=== PATIENT | female | born 1945 | race Caucasian/White ===

== ENCOUNTER → 2017-10-24 15:06 | Outpatient (CLI) | payer MEDICARE, OTHER, SELFPAY ==
[2017-10-24 16:49] LABS: Alanine Aminotransferase 27 IU/L (9-52); Aspartate Aminotransferase 29 IU/L (14-36); Blood Urea Nitrogen 23 mg/dL (7-17); Cholesterol 248 mg/dL (140-199); HDL Cholesterol 87 mg/dL (40-60); LDL Cholesterol Calculated 127 mg/dL (<100); Triglycerides 172 mg/dL (35-150)
[2017-10-24 17:18] LABS: TSH w/ Reflex to FT4 0.43 uIU/mL (0.47-4.68)
[2017-10-24 18:14] LABS: Free T4, Direct Thyroxine 1.38 ng/dL (0.78-2.19)
== END ==
PROVIDERS: PCP Internal Medicine; Visit Provider Internal Medicine
DX: M81.0 Age-related osteoporosis without current pathological fracture (principal); E78.5 Hyperlipidemia, unspecified; E03.9 Hypothyroidism, unspecified
CPT/HCPCS: 36415; 80061; 82306; 84439; 84443; 84450; 84460; 84520

== ENCOUNTER → 2017-12-30 09:07 | Outpatient (CLI) | payer MEDICARE, OTHER, SELFPAY ==
--- NOTE | 2017-12-30 | DI.RAD.S_ITS ---
PROCEDURE: XR HIP W PEL IF DONE LT 2V INDICATIONS: HIP PAIN TECHNIQUE: AP pelvis with lateral view(s) of the left hip. COMPARISON: None. FINDINGS: Bones: No fractures or dislocations. Prior right total hip arthroplasty. Also, prior long medullary rizwan placement with diagonal dynamic hip screws on the left, showing no evidence of device loosening or disruption. 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 Pelvic ring appears intact. No suspicious bony lesions. Soft tissues: The visualized bowel gas pattern is normal. No suspicious soft tissue calcifications. 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 Right hip arthroplasty intact. All orthopedic devices appear free of disruption or loosening. Dictated by: Govind Smith M.D. on 12/30/2017 at 10:42 Approved by: Govind Smith M.D. on 12/30/2017 at 10:43
== END ==
PROVIDERS: Family Provider Internal Medicine; PCP Internal Medicine; Visit Provider Physician Assistant
DX: M16.12 Unilateral primary osteoarthritis, left hip (principal); M25.552 Pain in left hip; M54.32 Sciatica, left side; Z96.641 Presence of right artificial hip joint
CPT/HCPCS: 73502

== ENCOUNTER → 2018-01-02 15:24 | Outpatient (CLI) | payer MEDICARE, OTHER, SELFPAY ==
--- NOTE | 2018-01-02 15:49 | DI.RAD.S_ITS ---
PROCEDURE: XR BONE LENGTH SCANOGRAM INDICATIONS: PAIN TECHNIQUE: A single frontal standing view of the left lower extremity acquired, with measuring ruler situated between the legs. COMPARISON: [facility], CR, XR KNEE 1 OR 2VW LT, 10/16/2015, 14:33. [facility], CR, XR KNEE 1 OR 2VW LT, 09/11/2015, 13:44. [facility], CR, KNEE SERIES LT, 08/24/2015, 11:44. [facility], CR, KNEE 3V LEFT, 08/13/2015, 16:21. FINDINGS: Left: Total leg length is 96.8 cm. femoral IM rizwan in proximal dynamic hip screws are present. IMPRESSION: Left leg length as above. Dictated by: Kayden FORTUNE Interpreted: Jennifer Zambrano MD on 01/02/2018 at 16:56 Approved by: Shawn Wright M.D. on 01/02/2018 at 17:11
== END ==
PROVIDERS: Family Provider Physician Assistant; PCP Internal Medicine; Visit Provider Internal Medicine
DX: M79.605 Pain in left leg (principal); M25.552 Pain in left hip
CPT/HCPCS: 77073

== ENCOUNTER → 2018-03-10 12:27 | Outpatient (CLI) | payer MEDICARE, OTHER, SELFPAY ==
[2018-03-10 13:48] LABS: Alanine Aminotransferase 24 IU/L (9-52); Aspartate Aminotransferase 30 IU/L (14-36); Cholesterol 174 mg/dL (140-199); HDL Cholesterol 73 mg/dL (40-60); LDL Cholesterol Calculated 78 mg/dL (<100); Triglycerides 114 mg/dL (35-150)
[2018-03-10 14:56] LABS: Vitamin D 25 Hydroxy (D3) 31.2 ng/mL (30.0-100.0)
== END ==
PROVIDERS: PCP Internal Medicine; Visit Provider Internal Medicine
DX: E55.9 Vitamin D deficiency, unspecified (principal); E78.5 Hyperlipidemia, unspecified; E03.9 Hypothyroidism, unspecified
CPT/HCPCS: 36415; 80061; 82306; 84443; 84450; 84460

== ENCOUNTER → 2018-06-18 14:36 | Outpatient (CLI) | payer MEDICARE, OTHER, SELFPAY ==
--- NOTE | 2018-06-18 | DI.MG.S_ITS ---
BILATERAL DIGITAL SCREENING MAMMOGRAM 3D/2D WITH CAD: 06/18/2018 CLINICAL: Routine screening. Family history of breast cancer. Comparison is made to exams dated: 06/17/2017 mammogram, 05/20/2016 mammogram, and 04/24/2015 mammogram - [facility]. The tissue of both breasts is heterogeneously dense. This may lower the sensitivity of mammography. Current study was also evaluated with a Computer Aided Detection (CAD) system. There are benign calcifications in both breasts. No significant masses, calcifications, or other findings are seen in either breast. There has been no significant interval change. IMPRESSION: There is no mammographic evidence of malignancy. A 1 year screening mammogram is recommended. This exam was interpreted at Station ID: [id number]. NOTE: For mammograms, a report in lay terms will be sent to the patient. Approximately 15% of breast malignancies will not be visualized mammographically. In the management of a palpable breast mass, a negative mammogram must not discourage biopsy of a clinically suspicious lesion. Electronically Signed By: Danny quarles/kay:06/18/2018 19:05:16 letter sent: Normal Exam ACR BI-RADS Category 2: Benign Finding(s) 3342F
== END ==
PROVIDERS: PCP Internal Medicine; Visit Provider Internal Medicine
DX: Z12.31 Encounter for screening mammogram for malignant neoplasm of breast (principal); Z80.3 Family history of malignant neoplasm of breast
CPT/HCPCS: 77063; 77067

== ENCOUNTER 2018-06-24 09:30 | Day surgery (SDC) | payer MEDICARE, OTHER, SELFPAY ==
[2018-06-24 10:17] VITALS: BP 147/72; PULSE 79; RESP 12; TEMP 36.4; O2SAT 98
[2018-06-24 10:19] VITALS: BMI 26.2
[2018-06-24] MEDS: SODIUM CHLORIDE 0.9% 1,000 ML 84 ML IV (10:37)
--- NOTE | 2018-06-24 10:37 | PM.HP.1 ---
History of Present Illness Date Patient Seen: 06/24/18 Time Patient Seen: 10:37 Chief complaint: [id number] Colonoscopy Narrative: Colorectal cancer screening with family history of colon cancer Patient History Medical History Depression (Acute) GE reflux (Acute) Hypercholesterolemia (Acute) Hypothyroidism (Acute) Social History household members: none Family & Social History Social History: household members none Meds Home Medications Medication Instructions Recorded Confirmed Type Maxalt-WHITE [employer]ER 06/24/18 History calcitonin (salmon) 1 spray INTRANASAL (ALT) DAILY 06/24/18 06/24/18 History cetirizine [Zyrtec] 10 mg PO DAILY 06/24/18 06/24/18 History cholecalciferol (vitamin D3) 1,000 unit PO DAILY 06/24/18 06/24/18 History [Vitamin D3] coQ10 (ubiquinol) 06/24/18 History levothyroxine 88 mcg PO DAILY 06/24/18 06/24/18 History magnesium oxide 400 mg PO BID 06/24/18 06/24/18 History omeprazole 10 - 20 mg PO DAILY 06/24/18 06/24/18 History sertraline 25 mg PO DAILY 06/24/18 06/24/18 History simvastatin 20 mg PO BEDTIME 06/24/18 06/24/18 History triamcinolone acetonide 1 applic TOPICAL BID 06/24/18 06/24/18 History triazolam 0.25 mg PO PRN PRN 06/24/18 06/24/18 History vitamin B complex 06/24/18 History Allergies Allergy/AdvReac Type Severity Reaction Status Date / Time meperidine [From DEMEROL] Allergy Unknown Hallucinati Verified 06/24/18 09:59 ons Exam Vital Signs (past 8 hours): - 06/24/18 10:17 Temperature 97.6 F Pulse Rate 79 Respiratory Rate 12 Blood Pressure 147/72 H Pulse Oximetry 98 Oxygen Delivery Method Room Air Narrative Exam Narrative: Oropharynx free of lesions Chest clear to auscultation percussion Cardiac exam reveals no S3 or murmur Assessment & Plan Assessment & Plan narrative: History of colon cancer in a first-degree relative (mother at age 70). Need for colorectal cancer screening in a high risk individual. Risks benefits and alternatives have been explained. Colonoscopy to be performed today.
--- NOTE | 2018-06-24 10:39 | PM.OP.ENDO ---
Operative Date/Time/Diagnoses Date of procedure: 06/24/18 Time of procedure: 10:39 Pre-op diagnosis: See indication and findings Procedure & Clinicians Study performed: Colonoscopy Same procedure as scheduled: Yes Indications: Family history of colon cancer in a first-degree relative Surgeon: Robin Diaz Procedure Notes Procedure in detail: After informed consent was obtained the patient was placed in left lateral decubitus position. The video colonoscope was introduced the rectum slowly advanced to the cecum. On slow withdrawal mucosa was carefully examined. The scope was removed. The patient tolerated the procedure well. The colon was quite tortuous. Preparation was good to fair given some solid stool in the distal colon Blood loss none Complications none Sedation Total sedation time 24 min Findings 1. Normal colonoscopy to cecum Patient should have follow-up colonoscopy in 5 years.
[2018-06-24] MEDS: MIDAZOLAM 5 MG/5 ML VIAL IV (11:27)
[2018-06-24] MEDS: fentaNYL 250 MCG/5 ML INJ IV (11:27)
[2018-06-24 11:49] VITALS: BP 108/66; PULSE 77; RESP 15; TEMP 36.2; O2SAT 95
[2018-06-24 11:54] VITALS: BP 112/67; PULSE 76; RESP 9; O2SAT 97
[2018-06-24 12:04] VITALS: BP 105/58; PULSE 76; RESP 15; O2SAT 95
[2018-06-24 12:20] VITALS: BP 116/71; PULSE 75; RESP 16; TEMP 36.2; O2SAT 100
[2018-06-24 12:35] VITALS: BP 114/68; PULSE 74; RESP 16; TEMP 36.2; O2SAT 100
== END 2018-06-24 12:40 | disposition home or self-care (01) ==
PROVIDERS: PCP Internal Medicine; Visit Provider Internal Medicine Gastroenterology
PROC: 0DJD8ZZ Inspection of Lower Intestinal Tract, Via Natural or Artificial Opening Endoscopic (ICD-10-PCS; CPT 45378; principal; 2018-06-24 10:30)
DX: Z12.11 Encounter for screening for malignant neoplasm of colon (principal); Z80.0 Family history of malignant neoplasm of digestive organs; F32.9 Major depressive disorder, single episode, unspecified; K21.9 Gastro-esophageal reflux disease without esophagitis; E78.00 Pure hypercholesterolemia, unspecified; E03.9 Hypothyroidism, unspecified
CPT/HCPCS: G0105; J2250; J3010

== ENCOUNTER → 2018-10-28 14:28 | Outpatient (CLI) | payer MEDICARE, OTHER, SELFPAY ==
[2018-10-28 15:15] LABS: BUN Creatinine Ratio 24.4 (6-22); Blood Urea Nitrogen 22 mg/dL (7-17); Calcium 9.8 mg/dL (8.4-10.2); Carbon Dioxide 27 mmol/L (22-32); Chloride 106 mmol/L (98-107); Cholesterol 210 mg/dL (140-199); Estimated Glomerular Filt Rate > 60.0 mL/min (>60); Glucose 89 mg/dL (80-110); HDL Cholesterol 70 mg/dL (40-60); HEMOLYSIS < 15 (0-50); LDL Cholesterol Calculated 108 mg/dL (<100); Potassium 4.4 mmol/L (3.4-5.1); Sodium 143 mmol/L (137-145); Triglycerides 161 mg/dL (35-150)
[2018-10-28 15:57] LABS: Vitamin D 25 Hydroxy (D3) 42.3 ng/mL (30.0-100.0)
== END ==
PROVIDERS: PCP Internal Medicine; Visit Provider Internal Medicine
DX: M81.0 Age-related osteoporosis without current pathological fracture (principal); E78.5 Hyperlipidemia, unspecified
CPT/HCPCS: 36415; 80048; 80061; 82306

== ENCOUNTER 2019-05-02 16:21 | Emergency (ER) | payer MEDICARE, OTHER, SELFPAY ==
--- NOTE | 2019-05-02 | DI.RAD.S_ITS ---
PROCEDURE: XR TIBIA FUBULA RT 2V INDICATIONS: FALL, LOWER RIGHT LEG PAIN TECHNIQUE: 2 views of the tibia and fibula were acquired. COMPARISON: [facility], CR, XR KNEE RT 3V, 05/02/2019, 17:58. FINDINGS: Bones: No fractures or dislocations. No suspicious bony lesions. Soft tissues: No suspicious soft tissue calcifications or masses. IMPRESSION: No fracture or dislocation. Dictated by: Skylar Woo M.D. on 05/02/2019 at 18:31 Approved by: Skylar Woo M.D. on 05/02/2019 at 18:32
[2019-05-02 16:35] VITALS: BP 178/82; PULSE 90; RESP 18; TEMP 36.6; O2SAT 100; BMI 26.1
--- NOTE | 2019-05-02 17:03 | ED_ITS ---
HPI - Extremity Injury (Lower) <Kyara AlmendarezHEENA agee - Last Filed: 05/02/19 21:07> General Chief Complaint: Extremity Injury, Lower Stated Complaint: Slipped ,fall, R leg pain,bruised Time Seen by Provider: 05/02/19 16:44 Source: patient Mode of arrival: Family Vehicle Limitations: no limitations History of Present Illness HPI Narrative: 73-year-old female with history of osteoporosis, presents to the emergency department complaining of right lower leg pain after a fall. She states 4 days ago she slipped on ice on her deck and fell on her left hip while twisting her right leg. She states she has been limping around for the past few days but has had continued right lower leg pain. She denies any knee pain or ankle pain. She has had both hips replaced but denies any knee surgeries. Patient states the pain is on the lateral aspect right leg below the knee. It is worse with palpation and slightly better with rest. Patient denies taking any blood thinners, denies hitting her head. She denies pain in any other area. 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 06/24/18 Zyrtec 10 mg PO DAILY 06/24/18 06/24/18 calcitonin (salmon) 1 spray INTRANASAL (ALT) DAILY 06/24/18 06/24/18 cholecalciferol (vitamin D3) 1,000 unit PO DAILY 06/24/18 06/24/18 [Vitamin D3] coQ10 (ubiquinol) 06/24/18 levothyroxine 88 mcg PO DAILY 06/24/18 06/24/18 magnesium oxide 400 mg PO BID 06/24/18 06/24/18 omeprazole 10 - 20 mg PO DAILY 06/24/18 06/24/18 sertraline 25 mg PO DAILY 06/24/18 06/24/18 simvastatin 20 mg PO BEDTIME 06/24/18 06/24/18 triamcinolone acetonide 1 applic TOPICAL BID 06/24/18 06/24/18 triazolam 0.25 mg PO PRN PRN 06/24/18 06/24/18 vitamin B complex 06/24/18 Allergies Allergy/AdvReac Type Severity Reaction Status Date / Time meperidine [From DEMEROL] Allergy Unknown Hallucinati Verified 06/24/18 09:59 ons Review of Systems <HEENA Valadez - Last Filed: 05/02/19 21:07> Review of Systems Narrative: REVIEW OF SYSTEMS: GENERAL: Denies fever or chills. HENT: No head trauma. EYES: No double vision or vision loss. CARDIOVASCULAR: No chest pain or syncope. RESPIRATORY: No shortness of breath or cough. GASTROINTESTINAL: No nausea, vomiting, diarrhea, or constipation. GENITOURINARY: No flank pain or dysuria. MUSCULOSKELETAL: Complains of right lower leg pain, see HPI. INTEGUMENTARY: No rash, lesions, or pruritus. NEURO: No numbness, tingling. PSYCH: No behavior or mood changes. Patient History <HEENA Valadez - Last Filed: 05/02/19 21:07> Medical History Depression (Acute) GE reflux (Acute) Hypercholesterolemia (Acute) Hypothyroidism (Acute) Social History household members: none Smoking Status: Never smoker Smoking Status: Never smoker alcohol intake frequency: 0-2 drinks per day Substance Use Type: does not use Exam <HEENA Valadez - Last Filed: 05/02/19 21:07> Initial Vital Signs Initial Vital Signs: Vital Signs Temperature 97.8 F 05/02/19 16:35 Pulse Rate 90 05/02/19 16:35 Respiratory Rate 18 05/02/19 16:35 Blood Pressure 178/82 H 05/02/19 16:35 Pulse Oximetry 100 05/02/19 16:35 PHYSICAL EXAMINATION: GENERAL: Well groomed, alert, and cooperative. Answers questions promptly and appropriately. Vital signs noted. HENT: Normocephalic, atraumatic. EYES: Symmetrical, sclera white, no periorbital swelling. CARDIOVASCULAR: S1 and S2 sounds normal. Regular rate and rhythm, no murmurs, clicks, or bruits. No pedal edema. RESPIRATORY: Normal respiratory rate, trachea midline, airway patent. No stridor, nasal flaring or accessory muscle use. Lungs are clear in all ferrara. MUSCULOSKELETAL: Significant tenderness to right lower calf on examination, slight tenderness to right lateral aspect of tibia with palpation. Minimal bruising noted to this area. No swelling, erythema, or lesions. Patient walks with limp due to pain. Equal tone and mass bilaterally. No spinal tenderness or deformities. EXTREMITIES: CMS intact. No pedal edema. SKIN: Warm, dry, soft, appropriate color for ethnicity. No lesions, rashes, or wounds. NEURO: Alert and Oriented X 3. No sensory deficits. PSYCH: Appropriate affect and mood. <Gabby Castanon DO - Last Filed: 05/05/19 08:07> Initial Vital Signs Initial Vital Signs: Vital Signs Temperature 97.8 F 05/02/19 16:35 Pulse Rate 90 05/02/19 16:35 Respiratory Rate 18 05/02/19 16:35 Blood Pressure 178/82 H 05/02/19 16:35 Pulse Oximetry 100 05/02/19 16:35 Course <HEENA Valadez - Last Filed: 05/02/19 21:07> Course Course Narrative: Patient was able to ambulate around the department. Orders Ordered: ED Orders 05/02/19 17:02 US periph venous low extrem rt Stat 05/02/19 17:36 XR knee RT 3V Stat Consultations Consultation #1: Patient staffed with Dr. Castanon Vital Signs Vital signs: Vital Signs - 8 hr 05/02/19 16:35 05/02/19 18:54 Temperature 97.8 F Pulse Rate 90 81 Respiratory Rate 18 16 Blood Pressure 178/82 H Blood Pressure [Left Arm] 176/77 H Pulse Oximetry 100 100 <Gabby Castanon DO - Last Filed: 05/05/19 08:07> Orders Ordered: ED Orders 05/02/19 17:02 US periph venous low extrem rt Stat 05/02/19 17:36 XR knee RT 3V Stat Vital Signs Vital signs: Vital Signs - 8 hr 05/02/19 16:35 05/02/19 18:54 Temperature 97.8 F Pulse Rate 90 81 Respiratory Rate 18 16 Blood Pressure 178/82 H Blood Pressure [Left Arm] 176/77 H Pulse Oximetry 100 100 MDM - Extremity Injury (Lower) <HEENA Valadez - Last Filed: 05/02/19 21:07> Medical Records Attestation: I reviewed the patient's medical records. Lab Data Attestation: I reviewed the patient's lab results. Imaging Data US - DVT: Radiologist's Impression: [address] [address] Ultrasound Report Signed Patient: Dulce Arreola FMR#: [id number] : 7Acct:[id number] Age/Sex: 73 / FDate of Service: 05/02/19 Loc: ED Accession Number: [id number] Procedure: US periph venous low extrem rt Ordering Provider: Kyara Painter PROCEDURE: US PERIPH VENOUS LOW EXTREM RT INDICATIONS: RL CALF PAIN, clinical concern for DVT TECHNIQUE: Real-time imaging, as well as color and pulse Doppler interrogation, were performed of the lower extremity deep veins from the inguinal ligament to the popliteal fossa. COMPARISON: None. FINDINGS: The common femoral, femoral and popliteal veins are normally compressible, and free of intraluminal thrombus. Color and pulse Doppler demonstrate normal phasic intraluminal flow. There is normal augmentation response to distal compression maneuver. IMPRESSION: Negative for deep venous thrombosis. Dictated by: Chet Coker M.D. on 05/02/2019 at 16:38 Approved by: Chet Coker M.D. on 05/02/2019 at 16:38 Knee Xray: Radiologist's Impression: [address] [address] XRay Report Signed Patient: Dulce Arreola FMR#: [id number] : 7Acct:[id number] Age/Sex: 73 / FDate of Service: 05/02/19 Loc: ED Accession Number: [id number] Procedure: XR knee RT 3V Ordering Provider: Kyara Painter PROCEDURE: XR KNEE RT 3V INDICATIONS: R lateral knee pain post fall TECHNIQUE: 3 views of the knee were acquired. COMPARISON: [facility], CR, XR TIBIA FIBULA RT 2V, 05/02/2019, 18:03. FINDINGS: Bones: No fractures or dislocations. No suspicious bony lesions. Mild degenerative changes is noted Soft tissues: No joint effusion. No suspicious soft tissue calcifications. IMPRESSION: No fracture or dislocation. Dictated by: Skylar Woo M.D. on 05/02/2019 at 18:32 Approved by: Skylar Woo M.D. on 05/02/2019 at 18:34 [facility] Narrative Medical decision making narrative: 73-year-old female presents to the emergency department complaining of right lower leg pain after fall. Differential includes DVT which is less likely due to negative ultrasound, this was originally ordered due to significant calf pain on examination. Less likely fracture due to negative knee and tib-fib x-rays (this was originally ordered due to significant history of osteoporosis and history of multiple fractures in the past). Less likely compartment syndrome due to lack of significant swelling or disproportionate pain on examination. Patient was able to ambulate on this leg for the past 4 days, she was able to ambulate without significant limping to and from the emergency department. She was encouraged to use ice, elevation, compression, and gentle stretches to the area to help with pain. Patient was encouraged to follow up with her primary care provider in 1-2 weeks for re- evaluation of symptoms continue. ED precautions given. Discharge Plan Departure Patient Disposition: Home Clinical Impression: Acute pain of right lower extremity Discharge Date/Time: 05/02/19 18:55 Instructions: DI for Leg Pain Activity Restrictions/Additional Instructions: Thank you for entrusting me with your care today. As discussed, your x-rays are negative for any fracture and your ultrasound is negative for a blood clot. I suggest he follow up with her primary care provider in 1-2 weeks for re- evaluation if your symptoms continue. You may continue take Tylenol for pain. I suggest gentle stretches and a small amount of activity. Return emergency department for new or worsening symptoms such as worsening pain, high fevers, or other concerns. Prescriptions: No Action vitamin B complex Tablet Extended Release RF: 0 triazolam 0.25 mg Tablet 0.25 mg PO PRN PRN (Reason: Migraine Headache) RF: 0 levothyroxine 88 mcg Tablet 88 mcg PO DAILY RF: 0 omeprazole 10 mg Capsule,Delayed Release(Dr/Ec) 10 - 20 mg PO DAILY RF: 0 triamcinolone acetonide 0.025 % Cream 1 applic TOPICAL BID RF: 0 calcitonin (salmon) 200 unit/actuation [place],Non-Aerosol 1 spray INTRANASAL (ALT) DAILY RF: 0 simvastatin 20 mg Tablet 20 mg PO BEDTIME RF: 0 sertraline 25 mg Tablet 25 mg PO DAILY RF: 0 cholecalciferol (vitamin D3) [Vitamin D3] 1,000 unit Capsule 1,000 unit PO DAILY RF: 0 Zyrtec 10 mg Capsule 10 mg PO DAILY RF: 0 magnesium oxide 400 mg magnesium Tablet 400 mg PO BID RF: 0 Maxalt-SOCIAL MEDIA EXECUTIVE RF: 0 coQ10 (ubiquinol) RF: 0 Referrals: Lillie Mchugh MD [Primary Care Provider] -
--- NOTE | 2019-05-02 17:36 | DI.RAD.S_ITS ---
PROCEDURE: XR KNEE RT 3V INDICATIONS: R lateral knee pain post fall TECHNIQUE: 3 views of the knee were acquired. COMPARISON: [facility], CR, XR TIBIA FIBULA RT 2V, 05/02/2019, 18:03. FINDINGS: Bones: No fractures or dislocations. No suspicious bony lesions. Mild degenerative changes is noted Soft tissues: No joint effusion. No suspicious soft tissue calcifications. IMPRESSION: No fracture or dislocation. Dictated by: Skylar Woo M.D. on 05/02/2019 at 18:32 Approved by: Skylar Woo M.D. on 05/02/2019 at 18:34
[2019-05-02 18:54] VITALS: BP 176/77; PULSE 81; RESP 16; O2SAT 100
== END 2019-05-02 18:55 | disposition home or self-care (01) ==
PROVIDERS: Emergency Provider Nurse Practitioner; PCP Internal Medicine
DX: M79.661 Pain in right lower leg (principal); W00.0XXA Fall on same level due to ice and snow, initial encounter
CPT/HCPCS: 73562; 73590; 93971; 99283

== ENCOUNTER → 2019-05-12 14:05 | Outpatient (CLI) | payer MEDICARE, OTHER, SELFPAY ==
[2019-05-12 15:55] LABS: Alanine Aminotransferase 19 IU/L (<35); Aspartate Aminotransferase 36 IU/L (14-36); Cholesterol 229 mg/dL (140-199); HDL Cholesterol 60 mg/dL (40-60); LDL Cholesterol Calculated 124 mg/dL (<100); Triglycerides 227 mg/dL (35-150)
[2019-05-12 16:08] LABS: Vitamin D 25 Hydroxy (D3) 36.5 ng/mL (30.0-100.0)
== END ==
PROVIDERS: PCP Internal Medicine; Visit Provider Internal Medicine
DX: E78.5 Hyperlipidemia, unspecified (principal); M81.0 Age-related osteoporosis without current pathological fracture
CPT/HCPCS: 36415; 80061; 82306; 84450; 84460

== ENCOUNTER → 2019-06-22 15:08 | Outpatient (CLI) | payer MEDICARE, OTHER, SELFPAY ==
--- NOTE | 2019-06-22 15:13 | DI.MG.S_ITS ---
BILATERAL DIGITAL SCREENING MAMMOGRAM 3D/2D WITH CAD: 06/22/2019 CLINICAL: Routine screening. Family history of breast cancer. Comparison is made to exams dated: 06/18/2018 mammogram, 06/17/2017 mammogram, and 05/20/2016 mammogram - [facility]. The tissue of both breasts is heterogeneously dense. This may lower the sensitivity of mammography. Current study was also evaluated with a Computer Aided Detection (CAD) system. There are benign calcifications in both breasts. No significant masses, calcifications, or other findings are seen in either breast. There has been no significant interval change. IMPRESSION: There is no mammographic evidence of malignancy. A 1 year screening mammogram is recommended. This exam was interpreted at Station ID: [id number]. NOTE: For mammograms, a report in lay terms will be sent to the patient. Approximately 15% of breast malignancies will not be visualized mammographically. In the management of a palpable breast mass, a negative mammogram must not discourage biopsy of a clinically suspicious lesion. Electronically Signed By: Danny quarles/kay:06/23/2019 09:03:40 letter sent: Normal Exam ACR BI-RADS Category 2: Benign Finding(s) 3342F
== END ==
PROVIDERS: PCP Internal Medicine; Referring Provider Internal Medicine; Visit Provider Internal Medicine
DX: Z12.31 Encounter for screening mammogram for malignant neoplasm of breast (principal); Z80.3 Family history of malignant neoplasm of breast
CPT/HCPCS: 77063; 77067

== ENCOUNTER → 2019-11-24 15:21 | Outpatient (CLI) | payer MEDICARE, OTHER, SELFPAY ==
[2019-11-24 15:53] LABS: Hematocrit 37.3 % (36-46); Hemoglobin 12.3 g/dL (12.0-16.0); Mean Corpuscular HGB Conc 32.9 % (30-36); Mean Corpuscular Hemoglobin 30.7 PG (26-34); Mean Corpuscular Volume 93.2 fL (80-100); Platelet Count 238 X10^3/uL (150-400); Red Cell Distribution Width 13.2 % (11.6-14.8); White Blood Cell Count 6.8 X10^3/uL (4.5-11.0)
[2019-11-24 16:23] LABS: BUN Creatinine Ratio 26.6 (6-22); Blood Urea Nitrogen 25 mg/dL (7-17); Carbon Dioxide 26 mmol/L (22-32); Chloride 104 mmol/L (98-107); Estimated Glomerular Filt Rate 58.4 mL/min (>60); Glucose 93 mg/dL (80-110); HEMOLYSIS < 15 (0-50); Potassium 4.3 mmol/L (3.4-5.1); Sodium 139 mmol/L (137-145)
[2019-11-24 17:12] LABS: Vitamin B12 417 pg/mL (239-931)
[2019-11-24 17:17] LABS: TSH w/ Reflex to FT4 0.46 uIU/mL (0.47-4.68)
[2019-11-24 19:29] LABS: Free T4, Direct Thyroxine 1.39 ng/dL (0.78-2.19)
== END ==
PROVIDERS: PCP Internal Medicine; Referring Provider Internal Medicine; Visit Provider Internal Medicine
DX: R53.82 Chronic fatigue, unspecified (principal); E03.9 Hypothyroidism, unspecified
CPT/HCPCS: 36415; 80048; 82607; 84439; 84443; 85027

== ENCOUNTER → 2020-02-29 14:31 | Outpatient (CLI) | payer MEDICARE, OTHER, SELFPAY ==
[2020-02-29 18:10] LABS: Alanine Aminotransferase 19 IU/L (<35); Aspartate Aminotransferase 36 IU/L (14-36); Cholesterol 230 mg/dL (140-199); HDL Cholesterol 85 mg/dL (40-60); LDL Cholesterol Calculated 119 mg/dL (<100); Triglycerides 128 mg/dL (35-150)
== END ==
PROVIDERS: PCP Internal Medicine; Referring Provider Internal Medicine; Visit Provider Internal Medicine
DX: E78.5 Hyperlipidemia, unspecified (principal)
CPT/HCPCS: 36415; 80061; 84450; 84460

== ENCOUNTER → 2020-06-28 15:23 | Outpatient (CLI) | payer MEDICARE, OTHER, SELFPAY ==
--- NOTE | 2020-06-28 15:25 | DI.MG.S_ITS ---
BILATERAL DIGITAL SCREENING MAMMOGRAM 3D/2D WITH CAD: 06/28/2020 CLINICAL: Routine screening. Family history of breast cancer. Comparison is made to exams dated: 06/22/2019 mammogram, 06/18/2018 mammogram, and 06/17/2017 mammogram - [facility]. The tissue of both breasts is heterogeneously dense. This may lower the sensitivity of mammography. Current study was also evaluated with a Computer Aided Detection (CAD) system. No significant masses, calcifications, or other findings are seen in either breast. There has been no significant interval change. IMPRESSION: NEGATIVE There is no mammographic evidence of malignancy. A 1 year screening mammogram is recommended. This exam was interpreted at Station ID: [id number]. NOTE: For mammograms, a report in lay terms will be sent to the patient. Approximately 15% of breast malignancies will not be visualized mammographically. In the management of a palpable breast mass, a negative mammogram must not discourage biopsy of a clinically suspicious lesion. Electronically Signed By: Melida colin/kay:06/28/2020 16:53:32 letter sent: Normal Exam ACR BI-RADS Category 1: Negative 3341F
== END ==
PROVIDERS: PCP Internal Medicine; Referring Provider Internal Medicine; Visit Provider Internal Medicine
DX: Z12.31 Encounter for screening mammogram for malignant neoplasm of breast (principal); Z80.3 Family history of malignant neoplasm of breast
CPT/HCPCS: 77063; 77067

== ENCOUNTER 2020-09-15 23:46 | Emergency (ER) | payer MEDICARE, OTHER, SELFPAY ==
[2020-09-15 23:59] VITALS: BP 194/84; PULSE 87; RESP 16; TEMP 36.6; O2SAT 98; BMI 28.3
--- NOTE | 2020-09-16 00:07 | ED_ITS ---
HPI - General Adult General Chief complaint: Wound/Laceration Stated complaint: Her dog bit her face Time Seen by Provider: 09/15/20 23:52 Source: patient Mode of arrival: Ambulatory Limitations: no limitations History of Present Illness HPI narrative: Patient is a 74-year-old female who is here for evaluation of a dog bite to her face. She states that she was bit by her dog that is up-to-date on immunizations. She is not exactly sure when her last tetanus shot was. She states that her dog is blind and she startled her dog can cause the dog to bite her on her face. She has 3 cuts to the left cheek. Related Data Home Medications Medication Instructions Recorded Confirmed Maxalt-ADAPTIVE PHYSICAL EDUCATION SPECIALIST 06/24/18 Zyrtec 10 mg PO DAILY 06/24/18 06/24/18 calcitonin (salmon) 1 spray INTRANASAL (ALT) DAILY 06/24/18 06/24/18 cholecalciferol (vitamin D3) 1,000 unit PO DAILY 06/24/18 06/24/18 [Vitamin D3] coQ10 (ubiquinol) 06/24/18 levothyroxine 88 mcg PO DAILY 06/24/18 06/24/18 magnesium oxide 400 mg PO BID 06/24/18 06/24/18 omeprazole 10 - 20 mg PO DAILY 06/24/18 06/24/18 sertraline 25 mg PO DAILY 06/24/18 06/24/18 simvastatin 20 mg PO BEDTIME 06/24/18 06/24/18 triamcinolone acetonide 1 applic TOPICAL BID 06/24/18 06/24/18 triazolam 0.25 mg PO PRN PRN 06/24/18 06/24/18 vitamin B complex 06/24/18 Previous Rx's Medication Instructions Recorded amoxicillin-pot clavulanate 1 tab PO Q12H 7 Days #14 tab 09/16/20 [Augmentin] Allergies Allergy/AdvReac Type Severity Reaction Status Date / Time meperidine [From DEMEROL] Allergy Unknown Hallucinati Verified 09/16/20 00:15 ons Review of Systems Constitutional Constitutional: Reports system reviewed and no additional complaints, except as documented Eyes Eyes: Reports system reviewed and no additional complaints, except as documented ENT Ears, Nose, Mouth, and Throat: Reports system reviewed and no additional complaints, except as documented Integumentary/Breasts Comments: Cuts to left side of face Hematologic/Lymphatic On Anticoagulants: No Patient History Medical History Depression GE reflux Hypercholesterolemia Hypothyroidism Social History household members: none Smoking Status: Never smoker Smoking Status: Never smoker alcohol intake frequency: 0-2 drinks per day Substance Use Type: does not use Exam Initial Vital Signs Initial Vital Signs: Vital Signs Temperature 98 F 09/15/20 23:59 Pulse Rate 87 09/15/20 23:59 Respiratory Rate 16 09/15/20 23:59 Blood Pressure 194/84 H 09/15/20 23:59 Pulse Oximetry 98 09/15/20 23:59 Const General: cooperative and comfortable Limitations: mental status not altered HENMT Head: normal to inspection and normocephalic Nose: external nose normal Face and sinus: laceration Mouth: oral mucosae normal Teeth and gingiva: dentition normal Eyes Visual Ferrara: normal visual ferrara by confrontation Skin Other: Patient with 3 could still left side of her cheek. One cut is approximately 2 mm long and is not active bleeding. Second cut is approximately 7 mm long. No active bleeding. Somewhat over regular. Third cut it is approximately 3 cm long. No active bleeding. Neuro General: patient alert and patient awake Extrem General: normal to inspection and capillary refill normal Psych Appearance: grossly normal Procedures Laceration Repair Laceration 1: Site: face Side (If applicable): left Size (cm): 3 Description: linear Depth: simple, single layer Local Anesthetic: lidocaine 1% and with bicarb Amount of anesthesia used (mL): 3 Pre-repair: wound explored and irrigated extensively Skin layer closed with: other (Chromic) Size (cm): 5-0 Number of sutures: 4 Technique: simple, interrupted Laceration 2: Site: face Side (If applicable): left Size (cm): 1 Description: irregular Depth: simple, single layer Local Anesthetic: lidocaine 1% and with bicarb Amount of anesthesia used (mL): 2 Pre-repair: wound explored and irrigated extensively Skin layer closed with: other (Chromic) Size (cm): 5-0 Number of sutures: 1 Technique: simple, interrupted Course Orders Ordered: Discontinued Medications Amoxicillin/Clavulanate Potassium (Amoxicillin/Clav 875/125 Mg) 1 tab PO NOW ONE Stop: 09/16/20 00:11 Last Admin: 09/16/20 00:14 Dose: 1 tab Documented by: ZURDO Bacitracin (Bacitracin Oint 0.9 Gm Pckt) 1 applic TOP NOW ONE Stop: 09/16/20 00:41 Last Admin: 09/16/20 00:48 Dose: 1 applic Documented by: ZURDO Diphtheria/Tetanus/Acell Pertussis (Tet,Diph,Pertuss(Acell),Vac/Pf 0.5 Ml Syringe) 0.5 ml IM .ONCE ONE Stop: 09/16/20 00:03 Last Admin: 09/16/20 00:14 Dose: 0.5 ml Documented by: ZURDO Lidocaine/Sodium Bicarbonate (Lido 1%/Sod Bicarb 8.4% (10ml) 10 Ml Syringe) 10 ml INJ NOW ONE Stop: 09/16/20 00:03 Last Admin: 09/16/20 00:14 Dose: 10 ml Documented by: ZURDO Vital Signs Vital signs: Vital Signs - 8 hr 09/15/20 23:59 09/16/20 00:50 Temperature 98 F Pulse Rate 87 77 Respiratory Rate 16 17 Blood Pressure 194/84 H 176/82 H Pulse Oximetry 98 97 Medical Decision Making MDM Narrative Medical decision making narrative: The 3 cuts on the side of her face for close described above. The smallest cut needed no intervention here in the ER. Her tetanus shot was updated. The wounds were closed loosely. Given the location will start patient on antibiotics. She was given her 1st dose here in the ER will send home with prescription. She was given care instructions and return precautions. She expressed understanding and agreement. Discharge Plan Departure Patient Disposition: Home Clinical Impression: Dog bite, Facial laceration Instructions: How to Care for a Domestic Animal Bite, DI for Laceration Repair Activity Restrictions/Additional Instructions: Your tetanus was updated. You were also given your 1st dose of antibiotics. A prescription for the remainder was sent to [facility]. The stitches should come out on their own in 7-10 days. Until then you can shower like normal. Contact your primary provider for follow-up. Prescriptions: New amoxicillin-pot clavulanate [Augmentin] 875-125 mg tablet 1 tab PO Q12H 7 Days Qty: 14 RF: 0 No Action vitamin B complex Tablet Extended Release RF: 0 triazolam 0.25 mg Tablet 0.25 mg PO PRN PRN (Reason: Migraine Headache) RF: 0 levothyroxine 88 mcg Tablet 88 mcg PO DAILY RF: 0 omeprazole 10 mg Capsule,Delayed Release(Dr/Ec) 10 - 20 mg PO DAILY RF: 0 triamcinolone acetonide 0.025 % Cream 1 applic TOPICAL BID RF: 0 calcitonin (salmon) 200 unit/actuation [place],Non-Aerosol 1 spray INTRANASAL (ALT) DAILY RF: 0 simvastatin 20 mg Tablet 20 mg PO BEDTIME RF: 0 sertraline 25 mg Tablet 25 mg PO DAILY RF: 0 cholecalciferol (vitamin D3) [Vitamin D3] 1,000 unit Capsule 1,000 unit PO DAILY RF: 0 Zyrtec 10 mg Capsule 10 mg PO DAILY RF: 0 magnesium oxide 400 mg magnesium Tablet 400 mg PO BID RF: 0 Maxalt-ADAPTIVE PHYSICAL EDUCATION SPECIALIST RF: 0 coQ10 (ubiquinol) RF: 0 Referrals: Lillie Mchugh MD [Primary Care Provider] -
[2020-09-16] MEDS: LIDO 1%/SOD BICARB 8.4% (10ML) 10 ML SYRINGE INJ (00:14)
[2020-09-16] MEDS: AMOXICILLIN/CLAV 875/125 MG 1 TAB PO (00:14)
[2020-09-16] MEDS: TET,DIPH,PERTUSS(ACELL),VAC/PF 0.5 ML SYRINGE IM (00:14)
--- NOTE | 2020-09-16 00:15 | PC.NURSE ---
Pt has 3 wounds to left chin. one laceration apr 3cm, and two puncture wounds. one puncture wound slightly larger than the second.
[2020-09-16] MEDS: BACITRACIN OINT 0.9 GM PCKT 1 APPLIC TOP (00:48)
[2020-09-16 00:50] VITALS: BP 176/82; PULSE 77; RESP 17; O2SAT 97
== END 2020-09-16 01:16 | disposition home or self-care (01) ==
PROVIDERS: Emergency Provider Emergency Medicine; PCP Internal Medicine
DX: S01.452A Open bite of left cheek and temporomandibular area, initial encounter (principal); W54.0XXA Bitten by dog, initial encounter; Z23 Encounter for immunization
CPT/HCPCS: 12013; 90471; 99283; 99284; 90715

== ENCOUNTER → 2021-03-02 15:45 | Outpatient (CLI) | payer MEDICARE, OTHER, SELFPAY ==
--- NOTE | 2021-03-02 15:52 | DI.RAD.S_ITS ---
PROCEDURE: XR WRIST LT MIN 3V INDICATIONS: PAIN TECHNIQUE: 3 views of the wrist were acquired. COMPARISON: [facility], , XR HAND LT MIN 3V, 03/02/2021, 15:48. FINDINGS: Bones: Mildly displaced 4th and 5th metacarpal fractures are present. Scaphoid view: Not obtained. Soft tissues: No suspicious soft tissue calcifications. IMPRESSION: 4th and 5th metacarpal fractures as above. Dictated by: Palma Urena M.D. on 03/02/2021 at 17:30 Approved by: Palma Urena M.D. on 03/02/2021 at 17:30
--- NOTE | 2021-03-02 15:53 | DI.RAD.S_ITS ---
PROCEDURE: XR HAND LT MIN 3V INDICATIONS: PAIN TECHNIQUE: 3 views of the hand(s) acquired. COMPARISON: None. FINDINGS: Bones: Oblique fractures of the 4th and 5th metacarpals. 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 Soft tissues: No suspicious soft tissue calcifications. IMPRESSION: 4th and 5th metacarpal fractures. Dictated by: Lemuel Buchanan M.D. on 03/02/2021 at 16:49 Approved by: Lemuel Buchanan M.D. on 03/02/2021 at 16:50
== END ==
PROVIDERS: PCP Internal Medicine; Referring Provider Internal Medicine; Visit Provider Internal Medicine
DX: S62.305A Unspecified fracture of fourth metacarpal bone, left hand, initial encounter for closed fracture (principal); S62.307A Unspecified fracture of fifth metacarpal bone, left hand, initial encounter for closed fracture; M18.12 Unilateral primary osteoarthritis of first carpometacarpal joint, left hand; M19.032 Primary osteoarthritis, left wrist; W19.XXXA Unspecified fall, initial encounter
CPT/HCPCS: 73110; 73130

== ENCOUNTER → 2021-08-08 14:20 | Outpatient (CLI) | payer MEDICARE, OTHER, SELFPAY ==
--- NOTE | 2021-08-08 14:21 | DI.MG.S_ITS ---
BILATERAL DIGITAL SCREENING MAMMOGRAM 3D/2D WITH CAD: 08/08/2021 CLINICAL: Routine screening. Family history of breast cancer. Comparison is made to exams dated: 06/28/2020 mammogram, 06/22/2019 mammogram, and 06/18/2018 mammogram - [facility]. The tissue of both breasts is heterogeneously dense. This may lower the sensitivity of mammography. Current study was also evaluated with a Computer Aided Detection (CAD) system. No significant masses, calcifications, or other findings are seen in either breast. There has been no significant interval change. IMPRESSION: NEGATIVE There is no mammographic evidence of malignancy. A 1 year screening mammogram is recommended. This exam was interpreted at Station ID: [id number]. NOTE: For mammograms, a report in lay terms will be sent to the patient. Approximately 15% of breast malignancies will not be visualized mammographically. In the management of a palpable breast mass, a negative mammogram must not discourage biopsy of a clinically suspicious lesion. Electronically Signed By: Morgan Coy M.D., jr/kay:08/08/2021 15:24:34 letter sent: Normal Exam ACR BI-RADS Category 1: Negative [id number]
== END ==
PROVIDERS: PCP Internal Medicine; Referring Provider Internal Medicine; Visit Provider Internal Medicine
DX: Z12.31 Encounter for screening mammogram for malignant neoplasm of breast (principal); Z80.3 Family history of malignant neoplasm of breast
CPT/HCPCS: 77063; 77067

== ENCOUNTER 2022-08-23 15:09 | Inpatient (IN) | payer MEDICARE, OTHER, SELFPAY ==
[2022-08-23 15:10] VITALS: BP 172/89; PULSE 83; RESP 16; TEMP 37.1; O2SAT 100; BMI 25.7
[2022-08-23 15:53] LABS: INR 1.1 (0.9-1.3); Prothrombin Time 12.1 SECONDS (10.1-12.7)
[2022-08-23 15:54] LABS: Add Manual Diff / Slide Review NO; Basophils Absolute Auto 100 /uL (0-100); Eosinophils Absolute Auto 200 /uL (0-450); Eosinophils Percent Auto 2.1 % (2-4); Hematocrit 34.6 % (36-46); Hemoglobin 11.6 g/dL (12.0-16.0); Lymphocytes Absolute Auto 2400 /uL (1100-4500); Lymphocytes Percent Auto 21.5 % (25-40); Mean Corpuscular HGB Conc 33.4 % (30-36); Mean Corpuscular Volume 92.7 fL (80-100); Monocytes Absolute Auto 800 /uL (0-900); Monocytes Percent Auto 7.2 % (3-14); Neutrophils Absolute Auto 7700 /uL (1500-7000); Neutrophils Percent Auto 68.2 % (50-75); Platelet Count 249 X10^3/uL (150-400); Red Blood Cell Count 3.74 X10^6/uL (4.0-5.2); Red Cell Distribution Width 12.9 % (11.6-14.8); White Blood Cell Count 11.3 X10^3/uL (4.5-11.0)
[2022-08-23 15:56] LABS: PTT Partial Thromboplastin Tim 40 SECONDS (26-36)
[2022-08-23 15:59] LABS: Alanine Aminotransferase 22 IU/L (<35); Albumin 4.5 g/dL (3.5-5.0); Albumin Globulin Ratio 1.2 (1.0-2.8); Alkaline Phosphatase 84 U/L (38-126); Aspartate Aminotransferase 37 IU/L (14-36); Bilirubin Total 0.5 mg/dL (0.2-1.3); Blood Urea Nitrogen 18 mg/dL (7-17); Calcium 9.6 mg/dL (8.4-10.2); Carbon Dioxide 26 mmol/L (22-32); Chloride 100 mmol/L (98-107); Estimated Glomerular Filt Rate > 60 mL/min (>60); Globulin 3.9 g/dL (1.7-4.1); Glucose 108 mg/dL (80-110); HEMOLYSIS 20 (0-50); Lipase 152 U/L (23-300); Potassium 4.3 mmol/L (3.4-5.1); Sodium 136 mmol/L (137-145); Total Protein 8.4 g/dL (6.3-8.2)
[2022-08-23 16:00] LABS: Lactate (Lactic Acid) 1.4 mmol/L (0.7-2.1)
--- NOTE | 2022-08-23 16:01 | DI.CT.S_ITS ---
PROCEDURE: CT UE RT W CON INDICATIONS: Dog bite/swelling TECHNIQUE: After the administration of intravenous contrast, 3 mm axial sections acquired of the right upper extremity , with coronal and sagittal reformats. COMPARISON: None. FINDINGS: Image quality: Excellent. Bones: No fracture or osseous lesion. Soft tissues: There is ill-defined multi lobular low-density within the volar aspects of the distal forearm, spanning roughly 40 mm transverse by 20 mm anteroposterior with ill-defined peripheral enhancement. Moderate diffuse subcutaneous fat stranding is present , predominantly within the distal forearm IMPRESSION: 1. Findings suggestive of a phlegmon with surrounding cellulitis within the volar soft tissues of the distal forearm. Dictated by: Shaji Thompson M.D. on 08/23/2022 at 16:51 Transcribed by: TESSIE on 08/23/2022 at 16:52 Approved by: Shaji Thompson M.D. on 08/23/2022 at 16:57
[2022-08-23 16:16] LABS: Procalcitonin 0.15 ng/mL (<0.5)
[2022-08-23] MEDS: VANCOMYCIN 1,500 MG/300 ML PIGGYBACK 200 MG IV (16:27)
[2022-08-23] MEDS: SODIUM CHLORIDE 0.9% 500 ML 1000 ML IV (16:28)
[2022-08-23 18:17] VITALS: PULSE 86; O2SAT 96
[2022-08-23 18:18] VITALS: BP 174/79; PULSE 84; O2SAT 99
--- NOTE | 2022-08-23 18:52 | ED_ITS ---
HPI - Wound/Laceration General Chief Complaint: Wound/Laceration Stated Complaint: Dog bite Time Seen by Provider: 08/23/22 15:52 History of Present Illness HPI narrative: Patient here for infected dog bite to the right forearm. This occurred this past Friday. Patient up-to-date with tetanus less than 2 years. Since then has had swelling redness and pain. No discharge. No fever chills. Related Data Home Medications Medication Instructions Recorded Confirmed calcitonin (salmon) 200 1 spray intranasal (ALT) DAILY 06/24/18 08/24/22 unit/actuation nasal spray cetirizine 10 mg capsule (Zyrtec) 10 mg PO DAILY 06/24/18 08/24/22 cholecalciferol (vitamin D3) 25 1,000 unit PO DAILY 06/24/18 08/24/22 mcg (1,000 unit) capsule (Vitamin D3) coQ10 (ubiquinol) 1 tab PO DAILY 06/24/18 08/26/22 levothyroxine 88 mcg tablet 75 mcg PO DAILY 06/24/18 08/24/22 magnesium oxide 400 mg PO BID 06/24/18 08/24/22 omeprazole 10 mg capsule,delayed 10 mg PO DAILY 06/24/18 08/24/22 release sertraline 25 mg tablet 25 mg PO DAILY 06/24/18 08/24/22 triamcinolone acetonide 0.025 % 1 applic topical BID 06/24/18 08/26/22 topical cream triazolam 0.25 mg tablet 0.25 mg PO PRN PRN Migraine 06/24/18 08/24/22 Headache vitamin B complex 1 tab PO DAILY 06/24/18 08/26/22 aspirin 81 mg tablet 81 mg PO DAILY 08/24/22 08/24/22 rosuvastatin 10 mg tablet 10 mg PO BEDTIME 08/24/22 08/24/22 Previous Rx's Medication Instructions Recorded amoxicillin 875 mg-potassium 1 tab PO BID #14 tabs 08/26/22 clavulanate 125 mg tablet hydrocodone 5 mg-acetaminophen 325 1 tab PO Q4H PRN Pain, Moderate 08/26/22 mg tablet (4-10 #10 tabs Allergies Allergy/AdvReac Type Severity Reaction Status Date / Time meperidine [From DEMEROL] Allergy Unknown Hallucinati Verified 09/16/20 00:15 ons Review of Systems Review of Systems Narrative: GENERAL: negative chills, fatigue, malaise, fever, sweats. HEENT: negative sinus pain, ear pain, sore throat RESPIRATORY: negative dyspnea, cough CARDIOVASCULAR: negative chest pain, palpitations GASTROINTESTINAL: negative nausea, vomiting, abdominal pain : negative dysuria, frequency, hematuria MUSCULOSKELETAL: Positive muscle or bony pain SKIN: negative rash, skin lesions, positive skin injury NEUROLOGIC: negative weakness, numbness ROS Unobtainable: All systems reviewed & are unremarkable except as noted in HPI and below Patient History Medical History Depression GE reflux Hypercholesterolemia Hypothyroidism Surgical History History of hip surgery Family History Mother Cancer Father Glaucoma Social History household members: none Smoking Status: Never smoker Smoking Status: Never smoker alcohol intake frequency: 0-2 drinks per day Substance Use Type: does not use Exam Narrative Exam Narrative: GENERAL: in no distress, not toxic not dyspneic HEAD: Normocephalic. EXTREMITIES: No gross deformities. Examination right forearm. Surgical pen us ed to outline erythema. At the central volar distal surface of the forearm. There is area of bulging to the skin but not blistering. No fluctuance. No pain out of proportion to exam. No crepitus. 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 Nontender wrist and elbow BACK: No flank tenderness. NEURO: AOx4. SKIN: Warm and dry PSYCH: Not anxious, is cooperative Initial Vital Signs Initial Vital Signs: Vital Signs Temperature 98.7 F 08/23/22 15:10 Pulse Rate 83 08/23/22 15:10 Respiratory Rate 16 08/23/22 15:10 Blood Pressure 172/89 H 08/23/22 15:10 Pulse Oximetry 100 08/23/22 15:10 Oxygen Delivery Method Room Air 08/23/22 15:10 Course Orders Ordered: Discontinued Medications Acetaminophen (Acetaminophen 325 Mg Tablet) 650 mg PO NOW ONE Stop: 08/23/22 19:08 Last Admin: 08/23/22 19:19 Dose: 650 mg Documented By: JUDY Acetaminophen (Acetaminophen 325 Mg Tablet) 650 mg PO Q6H PRN PRN Reason: Fever/Mild Pain (1-3) Last Admin: 08/25/22 14:25 Dose: 650 mg Documented By: Admin: 08/24/22 01:46 Dose: 650 mg Documented By: DANTE Hydrocodone Bitart/Acetaminophen (Hydrocodone/Acet 5/325 Tablet) 1 tab PO Q4H PRN PRN Reason: Pain, Moderate (4-10 Last Admin: 08/26/22 06:38 Dose: 1 tab Documented By: Admin: 08/25/22 15:25 Dose: 1 tab Documented By: Admin: 08/25/22 08:44 Dose: 1 tab Documented By: Admin: 08/25/22 05:05 Dose: 1 tab Documented By: Admin: 08/24/22 20:23 Dose: 1 tab Documented By: Admin: 08/24/22 16:34 Dose: 1 tab Documented By: Admin: 08/24/22 12:20 Dose: 1 tab Documented By: Admin: 08/24/22 08:22 Dose: 1 tab Documented By: Admin: 08/23/22 22:13 Dose: 1 tab Documented By: JUDY Al Hydrox/Mg Hydrox/Simethicone (Mag Hydrox/Alum/Simeth 30 Ml Udc) 30 ml PO Q6HR PRN PRN Reason: Dyspepsia Al Hydrox/Mg Hydrox/Simethicone (Mag Hydrox/Alum/Simeth 30 Ml Udc) 30 ml PO QID PRN PRN Reason: Dyspepsia Amoxicillin/Clavulanate Potassium (Amoxicillin/Clav 875/125 Mg) 1 tab PO BID MIKAYLA Stop: 09/05/22 23:59 Aspirin (Aspirin 81 Mg Chew Tab) 81 mg PO DAILY MIKAYLA Last Admin: 08/26/22 08:25 Dose: 81 mg Documented By: Admin: 08/25/22 10:33 Dose: 81 mg Documented By: LOIS Atorvastatin Calcium (Atorvastatin 20 Mg Tablet) 20 mg PO BEDTIME [facility] Last Admin: 08/25/22 20:27 Dose: Not Given Documented By: Admin: 08/25/22 01:47 Dose: Not Given Documented By: DANTE Calcitonin [place] (Calcitonin,[place], Nasal [place]) 1 sprays NASAL DAILY [facility] Last Admin: 08/26/22 09:13 Dose: Not Given Documented By: GUSTABO Calcium Carbonate (Calcium Carbonate 500 Mg Tab) 1,000 mg PO Q4HR PRN PRN Reason: Dyspepsia Bupivacaine HCl 30 ml/ (Epinephrine HCl 0.15 mg) 0 ml INJ NOW ONE Stop: 08/25/22 09:54 Last Admin: 08/25/22 09:30 Dose: 10 ml Documented By: SIRIA Docusate Sodium (Docusate 100 Mg Capsule) 100 mg PO BID [facility] Last Admin: 08/26/22 09:13 Dose: Not Given Documented By: Admin: 08/25/22 20:28 Dose: Not Given Documented By: CS Enoxaparin Sodium (Enoxaparin 40 Mg/0.4 Ml Syringe) 40 mg SUBCUT DAILY [facility] Last Admin: 08/26/22 09:14 Dose: Not Given Documented By: Admin: 08/25/22 10:33 Dose: 40 mg Documented By: Admin: 08/24/22 09:57 Dose: 40 mg Documented By: GUSTABO Hydromorphone HCl (Hydromorphone 1 Mg Inj) 0.2 mg IV Q1H PRN PRN Reason: Pain, Mild (1-3) Sodium Chloride (Normal Saline 0.9%) 500 mls @ 1,000 mls/hr IV BOLUS ONE Stop: 08/23/22 16:30 Last Infusion: 08/23/22 18:30 Dose: 0 mls/hr Documented By: AMLia Infusion: 08/23/22 17:00 Dose: 1,000 mls/hr Documented By: Infusion: 08/23/22 16:30 Dose: 0 mls/hr Documented By: Admin: 08/23/22 16:28 Dose: 1,000 mls/hr Documented By: AMLia Vancomycin HCl/Dextrose (Vancomycin) 1,500 mg in 300 mls @ 200 mls/hr IV NOW ONE Stop: 08/23/22 17:44 Last Infusion: 08/23/22 18:30 Dose: 0 mls/hr Documented By: AMLia Infusion: 08/23/22 17:00 Dose: 200 mls/hr Documented By: Infusion: 08/23/22 16:30 Dose: 0 mls/hr Documented By: Admin: 08/23/22 16:27 Dose: 200 mls/hr Documented By: AMLia Vancomycin HCl (Vancomycin) 750 mg in 150 mls @ 150 mls/hr IV Q12H MIKAYLA Sodium Chloride (Normal Saline 0.9%) 1,000 mls @ 80 mls/hr IV CONT MIKAYLA Stop: 08/24/22 09:00 Last Infusion: 08/24/22 09:00 Dose: 0 mls/hr Documented By: Admin: 08/24/22 00:19 Dose: 80 mls/hr Documented By: DANTE Piperacillin Sod/Tazobactam (Sod 3.375 gm/ Sodium Chloride) 100 mls @ 25 mls/hr IV Q8H MIKAYLA Last Admin: 08/26/22 08:26 Dose: 25 mls/hr Documented By: Infusion: 08/26/22 04:45 Dose: 0 mls/hr Documented By: Admin: 08/26/22 00:43 Dose: 25 mls/hr Documented By: Infusion: 08/25/22 20:30 Dose: 0 mls/hr Documented By: Admin: 08/25/22 16:21 Dose: 25 mls/hr Documented By: Infusion: 08/25/22 13:54 Dose: 25 mls/hr Documented By: Admin: 08/25/22 09:54 Dose: 25 mls/hr Documented By: Infusion: 08/25/22 09:54 Dose: 25 mls/hr Documented By: Admin: 08/25/22 08:42 Dose: 25 mls/hr Documented By: Infusion: 08/25/22 04:00 Dose: 25 mls/hr Documented By: Admin: 08/25/22 00:00 Dose: 25 mls/hr Documented By: Infusion: 08/24/22 21:47 Dose: 0 mls/hr Documented By: Admin: 08/24/22 16:35 Dose: 25 mls/hr Documented By: Infusion: 08/24/22 12:20 Dose: 25 mls/hr Documented By: Admin: 08/24/22 08:20 Dose: 25 mls/hr Documented By: Infusion: 08/24/22 04:19 Dose: 25 mls/hr Documented By: Admin: 08/24/22 00:19 Dose: 25 mls/hr Documented By: DANTE Sodium Chloride (Normal Saline 0.9%) 250 mls @ 21 mls/hr IV Q24H PRN PRN Reason: Flush Last Infusion: 08/25/22 12:13 Dose: 0 mls/hr Documented By: Admin: 08/24/22 16:36 Dose: 21 mls/hr Documented By: GUSTABO Lactated Ringer's (Lactated Ringers) 1,000 mls @ 42 mls/hr IV CONT [facility] Last Admin: 08/25/22 11:04 Dose: Not Given Documented By: LOIS Levothyroxine Sodium (Levothyroxine 75 Mcg Tablet) 75 mcg PO DAILY@0600 [facility] Levothyroxine Sodium (Levothyroxine 88 Mcg Tablet) 75 mcg PO QACBREAK [facility] Last Admin: 08/25/22 12:14 Dose: Not Given Documented By: LOIS Levothyroxine Sodium (Levothyroxine 75 Mcg Tablet) 75 mcg PO 0600 [facility] Last Admin: 08/26/22 05:08 Dose: 75 mcg Documented By: Admin: 08/25/22 10:34 Dose: 75 mcg Documented By: LOIS Loratadine (Loratadine 10 Mg Tablet) 10 mg PO DAILY [facility] Last Admin: 08/25/22 12:15 Dose: Not Given Documented By: LOIS Loratadine (Loratadine 10 Mg Tablet) 10 mg PO BEDTIME [facility] Last Admin: 08/25/22 20:25 Dose: 10 mg Documented By: MARY Lorazepam (Lorazepam 0.5 Mg Tablet) 0.5 mg PO Q6HR PRN PRN Reason: Anxiety Magnesium Oxide (Magnesium Oxide 400 Mg Tablet) 400 mg PO BID [facility] Last Admin: 08/26/22 08:25 Dose: 400 mg Documented By: Admin: 08/26/22 00:43 Dose: 400 mg Documented By: SUZAN Naloxone HCl (Naloxone 0.4 Mg/Ml Vial) 0.2 mg IV Q2MIN PRN PRN Reason: Opiate Reversal Naloxone HCl (Naloxone 0.4 Mg/Ml Vial) 0.2 mg IV Q2MIN PRN PRN Reason: Opiate Reversal Nf - Triazolam 0.25 (Mg Tablet) 0.25 mg PO PRN PRN PRN Reason: Migraine Headache Ondansetron HCl (Ondansetron 4 Mg/2 Ml Inj) 4 mg IV Q8HR PRN PRN Reason: Nausea And Vomiting Ondansetron HCl (Ondansetron 4 Mg Odt) 4 mg PO Q4HR PRN PRN Reason: Nausea And Vomiting Oxycodone HCl (Oxycodone Ir 5 Mg Tablet) 5 mg PO Q3HR PRN PRN Reason: Pain, Mild (1-3) Last Admin: 08/25/22 10:00 Dose: 5 mg Documented By: SUZAN(2) Pantoprazole Sodium (Pantoprazole Dr 20 Mg Tablet) 20 mg PO DAILY [facility] Last Admin: 08/26/22 08:25 Dose: 20 mg Documented By: Admin: 08/25/22 10:33 Dose: 20 mg Documented By: LOIS Sennosides (Sennosides 8.6 Mg Tablet) 17.2 mg PO BEDTIME [facility] Last Admin: 08/25/22 20:27 Dose: Not Given Documented By: Admin: 08/24/22 21:47 Dose: Not Given Documented By: NOÉ Sertraline HCl (Sertraline 50 Mg Tablet) 25 mg PO DAILY [facility] Last Admin: 08/25/22 12:15 Dose: Not Given Documented By: LOIS Sertraline HCl (Sertraline 50 Mg Tablet) 25 mg PO BEDTIME [facility] Last Admin: 08/25/22 20:25 Dose: 25 mg Documented By: MARY Vancomycin HCl (Vancomycin Per Pharmacy) 1 request [facility] NOW ONE Stop: 08/23/22 16:02 Last Admin: 08/23/22 16:30 Dose: Not Given Documented By: AMU Vancomycin HCl (Vancomycin Trough) 1 request [facility] 0430 ONE Stop: 08/25/22 04:31 Vitamin D (Cholecalciferol (Vitamin D3) 1,000 Unit Tablet) 1,000 unit PO DAILY [facility] Last Admin: 08/26/22 08:25 Dose: 1,000 unit Documented By: GUSTABO Vital Signs Vital signs: Vital Signs - 8 hr 08/23/22 15:10 08/23/22 18:17 08/23/22 18:18 Temperature 98.7 F Pulse Rate 83 86 Respiratory Rate 16 Blood Pressure 172/89 H 174/79 H Pulse Oximetry 100 96 Oxygen Delivery Method Room Air 08/23/22 18:18 Temperature Pulse Rate 84 Respiratory Rate Blood Pressure Pulse Oximetry 99 Oxygen Delivery Method MDM - Wound/Laceration Lab Data 08/26/22 05:50 08/25/22 06:00 Labs: Lab Results 08/23/22 08/23/22 08/23/22 Range/Units 15:35 15:35 15:35 WBC 11.3 H (4.5-11.0) X10^3/uL RBC 3.74 L (4.0-5.2) X10^6/uL Hgb 11.6 L (12.0-16.0) g/dL Hct 34.6 L (36-46) % MCV 92.7 (80-100) fL MCH 31.0 (26-34) PG MCHC 33.4 (30-36) % RDW 12.9 (11.6-14.8) % Plt Count 249 (150-400) X10^3/uL Neut % (Auto) 68.2 (50-75) % Lymph % (Auto) 21.5 L (25-40) % Ogle % (Auto) 7.2 (3-14) % Eos % (Auto) 2.1 (2-4) % Baso % (Auto) 1.0 (0-2) % Neut # (Auto) 7700 H (7074-4706) /uL Lymph # (Auto) 2400 (7860-5612) /uL Ogle # (Auto) 800 (0-900) /uL Eos # (Auto) 200 (0-450) /uL Baso # (Auto) 100 (0-100) /uL ESR (0-20) MM/HR PT 12.1 (10.1-12.7) SECONDS INR 1.1 (0.9-1.3) APTT 40 H (26-36) SECONDS Sodium 136 L (137-145) mmol/L Potassium 4.3 (3.4-5.1) mmol/L Chloride 100 (98-107) mmol/L Carbon Dioxide 26 (22-32) mmol/L BUN 18 H (7-17) mg/dL Creatinine 0.82 (0.52-1.04) mg/dL Estimated GFR > 60 (>60) mL/min BUN/Creatinine Ratio 22.0 (6-22) Glucose 108 (80-110) mg/dL Lactate (0.7-2.1) mmol/L Calcium 9.6 (8.4-10.2) mg/dL Total Bilirubin 0.5 (0.2-1.3) mg/dL AST 37 H (14-36) IU/L ALT 22 (<35) IU/L Alkaline Phosphatase 84 (38-126) U/L C-Reactive Protein (<1.0) mg/dL Total Protein 8.4 H (6.3-8.2) g/dL Albumin 4.5 (3.5-5.0) g/dL Globulin 3.9 (1.7-4.1) g/dL Albumin/Globulin Ratio 1.2 (1.0-2.8) Lipase 152 (23-300) U/L Procalcitonin 0.15 (<0.5) ng/mL TSH (0.47-4.68) uIU/mL Urine Color Urine Appearance Urine pH (4.5-8.0) Ur Specific Henry (1.000-1.035) Urine Protein (Negative) Urine Glucose (UA) (Negative) g/dL Urine Ketones (NEGATIVE) Urine Occult Blood (Negative) Urine Nitrate (Negative) Urine Bilirubin (NEGATIVE) Urine Urobilinogen (0.2) E.U./dL Ur Leukocyte Esterase (NEGATIVE) Urine RBC (0-5/HPF) Urine WBC (0-5/HPF) Ur Squamous Epith Cells (0-5/HPF) Urine Bacteria (None) Ur Culture Indicated? SARS-CoV-2 (PCR) (Negative) 08/23/22 08/23/22 08/23/22 Range/Units 15:35 15:35 19:26 WBC (4.5-11.0) X10^3/uL RBC (4.0-5.2) X10^6/uL Hgb (12.0-16.0) g/dL Hct (36-46) % MCV (80-100) fL MCH (26-34) PG MCHC (30-36) % RDW (11.6-14.8) % Plt Count (150-400) X10^3/uL Neut % (Auto) (50-75) % Lymph % (Auto) (25-40) % Ogle % (Auto) (3-14) % Eos % (Auto) (2-4) % Baso % (Auto) (0-2) % Neut # (Auto) (2576-5459) /uL Lymph # (Auto) (0523-0837) /uL Ogle # (Auto) (0-900) /uL Eos # (Auto) (0-450) /uL Baso # (Auto) (0-100) /uL ESR (0-20) MM/HR PT (10.1-12.7) SECONDS INR (0.9-1.3) APTT (26-36) SECONDS Sodium (137-145) mmol/L Potassium (3.4-5.1) mmol/L Chloride (98-107) mmol/L Carbon Dioxide (22-32) mmol/L BUN (7-17) mg/dL Creatinine (0.52-1.04) mg/dL Estimated GFR (>60) mL/min BUN/Creatinine Ratio (6-22) Glucose (80-110) mg/dL Lactate 1.4 (0.7-2.1) mmol/L Calcium (8.4-10.2) mg/dL Total Bilirubin (0.2-1.3) mg/dL AST (14-36) IU/L ALT (<35) IU/L Alkaline Phosphatase (38-126) U/L C-Reactive Protein (<1.0) mg/dL Total Protein (6.3-8.2) g/dL Albumin (3.5-5.0) g/dL Globulin (1.7-4.1) g/dL Albumin/Globulin Ratio (1.0-2.8) Lipase (23-300) U/L Procalcitonin (<0.5) ng/mL TSH 3.44 (0.47-4.68) uIU/mL Urine Color Urine Appearance Urine pH (4.5-8.0) Ur Specific Henry (1.000-1.035) Urine Protein (Negative) Urine Glucose (UA) (Negative) g/dL Urine Ketones (NEGATIVE) Urine Occult Blood (Negative) Urine Nitrate (Negative) Urine Bilirubin (NEGATIVE) Urine Urobilinogen (0.2) E.U./dL Ur Leukocyte Esterase (NEGATIVE) Urine RBC (0-5/HPF) Urine WBC (0-5/HPF) Ur Squamous Epith Cells (0-5/HPF) Urine Bacteria (None) Ur Culture Indicated? SARS-CoV-2 (PCR) Negative (Negative) 08/24/22 08/24/22 08/24/22 Range/Units 05:39 05:39 05:39 WBC 9.3 (4.5-11.0) X10^3/uL RBC 3.49 L (4.0-5.2) X10^6/uL Hgb 10.7 L (12.0-16.0) g/dL Hct 32.2 L (36-46) % MCV 92.1 (80-100) fL MCH 30.6 (26-34) PG MCHC 33.3 (30-36) % RDW 12.9 (11.6-14.8) % Plt Count 198 (150-400) X10^3/uL Neut % (Auto) 69.0 (50-75) % Lymph % (Auto) 19.5 L (25-40) % Ogle % (Auto) 7.3 (3-14) % Eos % (Auto) 3.7 (2-4) % Baso % (Auto) 0.5 (0-2) % Neut # (Auto) 6400 (2162-5691) /uL Lymph # (Auto) 1800 (3093-4875) /uL Ogle # (Auto) 700 (0-900) /uL Eos # (Auto) 300 (0-450) /uL Baso # (Auto) 100 (0-100) /uL ESR 79 H (0-20) MM/HR PT (10.1-12.7) SECONDS INR (0.9-1.3) APTT (26-36) SECONDS Sodium 137 (137-145) mmol/L Potassium 3.8 (3.4-5.1) mmol/L Chloride 104 (98-107) mmol/L Carbon Dioxide 26 (22-32) mmol/L BUN 14 (7-17) mg/dL Creatinine 0.76 (0.52-1.04) mg/dL Estimated GFR > 60 (>60) mL/min BUN/Creatinine Ratio 18.4 (6-22) Glucose 128 H (80-110) mg/dL Lactate 0.9 (0.7-2.1) mmol/L Calcium 8.7 (8.4-10.2) mg/dL Total Bilirubin (0.2-1.3) mg/dL AST (14-36) IU/L ALT (<35) IU/L Alkaline Phosphatase (38-126) U/L C-Reactive Protein 14.0 H (<1.0) mg/dL Total Protein (6.3-8.2) g/dL Albumin (3.5-5.0) g/dL Globulin (1.7-4.1) g/dL Albumin/Globulin Ratio (1.0-2.8) Lipase (23-300) U/L Procalcitonin 0.13 (<0.5) ng/mL TSH (0.47-4.68) uIU/mL Urine Color Urine Appearance Urine pH (4.5-8.0) Ur Specific Henry (1.000-1.035) Urine Protein (Negative) Urine Glucose (UA) (Negative) g/dL Urine Ketones (NEGATIVE) Urine Occult Blood (Negative) Urine Nitrate (Negative) Urine Bilirubin (NEGATIVE) Urine Urobilinogen (0.2) E.U./dL Ur Leukocyte Esterase (NEGATIVE) Urine RBC (0-5/HPF) Urine WBC (0-5/HPF) Ur Squamous Epith Cells (0-5/HPF) Urine Bacteria (None) Ur Culture Indicated? SARS-CoV-2 (PCR) (Negative) 08/24/22 08/25/22 08/25/22 Range/Units 06:15 06:00 06:00 WBC 9.6 (4.5-11.0) X10^3/uL RBC 3.43 L (4.0-5.2) X10^6/uL Hgb 10.7 L (12.0-16.0) g/dL Hct 31.6 L (36-46) % MCV 92.2 (80-100) fL MCH 31.2 (26-34) PG MCHC 33.8 (30-36) % RDW 12.8 (11.6-14.8) % Plt Count 249 (150-400) X10^3/uL Neut % (Auto) 71.1 (50-75) % Lymph % (Auto) 16.1 L (25-40) % Ogle % (Auto) 8.7 (3-14) % Eos % (Auto) 3.6 (2-4) % Baso % (Auto) 0.5 (0-2) % Neut # (Auto) 6800 (4610-8931) /uL Lymph # (Auto) 1600 (8772-9419) /uL Ogle # (Auto) 800 (0-900) /uL Eos # (Auto) 300 (0-450) /uL Baso # (Auto) 100 (0-100) /uL ESR 80 H (0-20) MM/HR PT (10.1-12.7) SECONDS INR (0.9-1.3) APTT (26-36) SECONDS Sodium (137-145) mmol/L Potassium (3.4-5.1) mmol/L Chloride (98-107) mmol/L Carbon Dioxide (22-32) mmol/L BUN (7-17) mg/dL Creatinine (0.52-1.04) mg/dL Estimated GFR (>60) mL/min BUN/Creatinine Ratio (6-22) Glucose (80-110) mg/dL Lactate (0.7-2.1) mmol/L Calcium (8.4-10.2) mg/dL Total Bilirubin (0.2-1.3) mg/dL AST (14-36) IU/L ALT (<35) IU/L Alkaline Phosphatase (38-126) U/L C-Reactive Protein 18.2 H (<1.0) mg/dL Total Protein (6.3-8.2) g/dL Albumin (3.5-5.0) g/dL Globulin (1.7-4.1) g/dL Albumin/Globulin Ratio (1.0-2.8) Lipase (23-300) U/L Procalcitonin (<0.5) ng/mL TSH (0.47-4.68) uIU/mL Urine Color Yellow Urine Appearance Clear Urine pH 5.5 (4.5-8.0) Ur Specific Henry 1.015 (1.000-1.035) Urine Protein Negative (Negative) Urine Glucose (UA) Negative (Negative) g/dL Urine Ketones Negative (NEGATIVE) Urine Occult Blood Negative (Negative) Urine Nitrate Negative (Negative) Urine Bilirubin Negative (NEGATIVE) Urine Urobilinogen 0.2 (0.2) E.U./dL Ur Leukocyte Esterase Negative (NEGATIVE) Urine RBC 0-1/hpf (0-5/HPF) Urine WBC 0-1/hpf (0-5/HPF) Ur Squamous Epith Cells 0-1 /hpf (0-5/HPF) Urine Bacteria None seen (None) Ur Culture Indicated? Cult not indicated SARS-CoV-2 (PCR) (Negative) 08/25/22 08/25/22 Range/Units 06:00 08:20 WBC (4.5-11.0) X10^3/uL RBC (4.0-5.2) X10^6/uL Hgb (12.0-16.0) g/dL Hct (36-46) % MCV (80-100) fL MCH (26-34) PG MCHC (30-36) % RDW (11.6-14.8) % Plt Count (150-400) X10^3/uL Neut % (Auto) (50-75) % Lymph % (Auto) (25-40) % Ogle % (Auto) (3-14) % Eos % (Auto) (2-4) % Baso % (Auto) (0-2) % Neut # (Auto) (3153-5284) /uL Lymph # (Auto) (4807-2100) /uL Ogle # (Auto) (0-900) /uL Eos # (Auto) (0-450) /uL Baso # (Auto) (0-100) /uL ESR (0-20) MM/HR PT (10.1-12.7) SECONDS INR (0.9-1.3) APTT (26-36) SECONDS Sodium 137 (137-145) mmol/L Potassium 4.0 (3.4-5.1) mmol/L Chloride 102 (98-107) mmol/L Carbon Dioxide 27 (22-32) mmol/L BUN 16 (7-17) mg/dL Creatinine 0.86 (0.52-1.04) mg/dL Estimated GFR > 60 (>60) mL/min BUN/Creatinine Ratio 18.6 (6-22) Glucose 101 (80-110) mg/dL Lactate (0.7-2.1) mmol/L Calcium 9.0 (8.4-10.2) mg/dL Total Bilirubin (0.2-1.3) mg/dL AST (14-36) IU/L ALT (<35) IU/L Alkaline Phosphatase (38-126) U/L C-Reactive Protein 17.8 H (<1.0) mg/dL Total Protein (6.3-8.2) g/dL Albumin (3.5-5.0) g/dL Globulin (1.7-4.1) g/dL Albumin/Globulin Ratio (1.0-2.8) Lipase (23-300) U/L Procalcitonin (<0.5) ng/mL TSH (0.47-4.68) uIU/mL Urine Color Urine Appearance Urine pH (4.5-8.0) Ur Specific Henry (1.000-1.035) Urine Protein (Negative) Urine Glucose (UA) (Negative) g/dL Urine Ketones (NEGATIVE) Urine Occult Blood (Negative) Urine Nitrate (Negative) Urine Bilirubin (NEGATIVE) Urine Urobilinogen (0.2) E.U./dL Ur Leukocyte Esterase (NEGATIVE) Urine RBC (0-5/HPF) Urine WBC (0-5/HPF) Ur Squamous Epith Cells (0-5/HPF) Urine Bacteria (None) Ur Culture Indicated? SARS-CoV-2 (PCR) (Negative) Imaging Data CT right forearm: Radiologist's Impression: PROCEDURE:? CT UE RT W CON ? INDICATIONS:? Dog bite/swelling ? TECHNIQUE:? After the administration of intravenous contrast, 3 mm axial sections acquired of the right upper extremity , with coronal and sagittal reformats. ? ? COMPARISON:? None. ? FINDINGS:? Image quality:? Excellent.? ? Bones:? No fracture or osseous lesion. ? Soft tissues:? There is ill-defined multi lobular low-density within the volar aspects of the distal forearm, spanning roughly 40 mm transverse by 20 mm anteroposterior with ill-defined peripheral enhancement.? Moderate diffuse subcutaneous fat stranding is present , predominantly within the distal forearm ? IMPRESSION:? 1. Findings suggestive of a phlegmon with surrounding cellulitis within the volar soft tissues of the distal forearm. ? ? Dictated by: Shaji Thompson M.D. on 08/23/2022 at 16:51 ? Transcribed by: TESSIE on 08/23/2022 at 16:52? ? Approved by: Shaji Thompson M.D. on 08/23/2022 at 16:57 ? [facility] Narrative Medical decision making narrative: After history and exam CBC CMP lactic acid procalcitonin CT right forearm vancomycin IV fluids ordered [facility] CC: Right forearm dog bite Complicating co-morbidities: None Data collected from: Patient Medical records reviewed: No recent visits here for this complaint Differential considered: Includes but not limited to necrotizing fasciitis abscess cellulitis compartment syndrome Exam documented above, pertinent findings include: Cellulitis induration of the right forearm Lab Test results independently reviewed as above. Pertinent findings: WBC 11.3 lactic acid 1.4 procalcitonin 0.15 Imaging studies independently reviewed: CT right forearm findings suggestive of a phlegmon with surrounding cellulitis within the volar soft tissues of the distal forearm Consultations: 6:[address] Quintero, orthopedic, he will follow in consult. 7:50 p.m.. Spoke with hospitalist, Mikayla Hirsch. She will admit patient Treatments: Vancomycin normal saline Re-evaluations: Updated patient at 7:00 p.m.. Understands she will be admitted. Pain is controlled. Discussion: Appropriate for admission for IV antibiotics for infected bite wound. Orthopedics has been consulted. Hospitalist has been consulted for admit. Forearm otherwise soft. No signs of compartment syndrome. No pain out of proportion to exam. Diagnosis: Infected dog bite Discharge Plan Departure Patient Disposition: Admitted as Observation Clinical Impression: Infected dog bite of forearm Admit Date/Time: 08/25/22 12:59 Admit Provider: Mikayla Hirsch
[2022-08-23] MEDS: ACETAMINOPHEN 325 MG TABLET 650 MG PO (19:19)
[2022-08-23 19:48] LABS: COVID19 -Nasal RAPID Negative (Negative)
--- NOTE | 2022-08-23 22:03 | P.HP_ITS ---
History of Present Illness History of Present Illness Date Patient Seen: 08/23/22 Time Patient Seen: 22:03 Chief complaint: Dog bite Narrative: Dulce Arreola 76-year-old female with a history of hypertension, GERD, depression, hypothyroidism, hyperlipidemia, and migraines presented to the ED for a dog bite 6 days ago that has had increased redness swelling and pain to the right forearm, patient's tetanus is currently up-to-date. Dr. Quintero consulted reviewing imaging in ED and will consult. On admit patient denies chest pain, shortness in breath, headache, changes in vision, difficulty swallowing, speech impairment, weakness, numbness, tingling, difficulty with ambulation, recent falls, head injury, LOC, fever, body aches, chills, cough, recent exposure to illness, abdominal pain, nausea, vomiting, urinary incontinence/retention, dysuria, frequency, urgency, hematuria, bowel changes, constipation, incontinence, melena, rashes, recent changes to medic ation, illness, or trauma. Admit temp 98.7?, BP 174/79, HR 84, RR 16, O2 saturation 99% on room air. WBC 11.3, neutrophils 7700, H&H 11.6/34.6 patient's chemistry and hepatic panels are within normal limits, procalcitonin, lactate, and COVID are all negative. Right extremity CT -forearm phlegmon with surrounding cellulitis within the vulvar soft tissue distal forearm. Patient admitted for dog bite wound/cellulitis to right forearm [facility] Medical History Depression GE reflux Hypercholesterolemia Hypothyroidism Surgical History (Updated 08/24/22 @ 06:23 by SOBIA Hernandez-CITLALY) History of hip surgery Family History (Updated 08/24/22 @ 06:24 by SOBIA Hernandez-CITLALY) Mother Cancer Father Glaucoma Social History household members: none Smoking Status: Never smoker Meds Home Medications and Allergies Home Medications Medication Instructions Recorded Confirmed Type [employer]-BEHAVIOR SUPPORT SPECIALIST 06/24/18 History calcitonin (salmon) 200 1 spray intranasal (ALT) DAILY 06/24/18 06/24/18 History unit/actuation nasal spray cetirizine 10 mg capsule (Zyrtec) 10 mg PO DAILY 06/24/18 06/24/18 History cholecalciferol (vitamin D3) 25 1,000 unit PO DAILY 06/24/18 08/24/22 History mcg (1,000 unit) capsule (Vitamin D3) coQ10 (ubiquinol) 06/24/18 History levothyroxine 88 mcg tablet 75 mcg PO DAILY 06/24/18 08/24/22 History magnesium oxide 400 mg PO BID 06/24/18 06/24/18 History omeprazole 10 mg capsule,delayed 10 - 20 mg PO DAILY 06/24/18 06/24/18 History release sertraline 25 mg tablet 25 mg PO DAILY 06/24/18 06/24/18 History simvastatin 20 mg tablet 20 mg PO BEDTIME 06/24/18 06/24/18 History triamcinolone acetonide 0.025 % 1 applic topical BID 06/24/18 06/24/18 History topical cream triazolam 0.25 mg tablet 0.25 mg PO PRN PRN Migraine 06/24/18 06/24/18 History Headache vitamin B complex 06/24/18 History aspirin 81 mg tablet 81 mg PO DAILY 08/24/22 08/24/22 History Allergies Allergy/AdvReac Type Severity Reaction Status Date / Time meperidine [From DEMEROL] Allergy Unknown Hallucinati Verified 09/16/20 00:15 ons Review of Systems Review of Systems Narrative: All 12 point systems reviewed with the patient and are negative except otherwise documented. Exam Vital Signs (past 8 hours): - 08/23/22 15:10 08/23/22 18:17 08/23/22 18:18 Temperature 98.7 F Pulse Rate 83 86 Respiratory Rate 16 Blood Pressure 172/89 H 174/79 H Pulse Oximetry 100 96 Oxygen Delivery Method Room Air 08/23/22 18:18 Temperature Pulse Rate 84 Respiratory Rate Blood Pressure Pulse Oximetry 99 Oxygen Delivery Method Oxygen Delivery Method Room Air Narrative Exam Narrative: General: Patient is a well-developed, well-nourished in no distress at this time. HEENT: Normocephalic, atraumatic, extraocular muscles intact, oral pharynx is clear and mucous membranes are moist. Neck is supple and symmetric, trachea is midline, no adenopathy, no thyroid enlargement, nontender, no masses palpated. Negative for JVD Chest: Normal AP diameter and contour without kyphoscoliosis, no nasal flaring, retractions, or tachypneic labored Lungs: Auscultation of all lung ferrara are clear without adventitious sounds, wheezes, rhonchi, or rales. Cardio: regular rate and rhythm without murmur, rubs, or gallops, no carotid bruit, no cardiac pulsations present. Abdomen: Soft nontender, negative for organomegaly, or masses. Bowel sounds are present in all 4 quadrants without guarding or rebound, no CVA tenderness. Musculoskeletal: With the exception of Right arm:Muscle strength and tone are equal within normal limits, no deformity, crepitus, effusions, cyanosis, clubbing or edema present. Full range of motion intact radial and pedal pulses are normal. Right forearm.? Surgical pen used to outline erythema.? At the central volar distal surface of the forearm.? There is area of bulging to the skin but not blistering.? No fluctuance.? No pain out of proportion to exam.? No crepitus.? Strong radial pulse strong cctv technician brisk cap refills light touch intact to fingers and thumb.? Nontender wrist and elbow Neuro: Alert and orientated x3, strength is +5/5 in all extremities, sensation to touch intact, no gross deficits noted of cranial nerves. Psych: Patient has a well-kept appearance, appropriate affect, mental status attitude thought context and judgment are appropriate for age. Objective Labs 08/24/22 05:39 08/24/22 05:39 Labs: Laboratory Results - last 24 hr 08/23/22 08/23/22 08/23/22 15:35 15:35 15:35 WBC 11.3 H RBC 3.74 L Hgb 11.6 L Hct 34.6 L MCV 92.7 MCH 31.0 MCHC 33.4 RDW 12.9 Plt Count 249 Neut % (Auto) 68.2 Lymph % (Auto) 21.5 L [place] % (Auto) 7.2 Eos % (Auto) 2.1 Baso % (Auto) 1.0 Neut # (Auto) 7700 H Lymph # (Auto) 2400 [place] # (Auto) 800 Eos # (Auto) 200 Baso # (Auto) 100 PT 12.1 INR 1.1 APTT 40 H Sodium 136 L Potassium 4.3 Chloride 100 Carbon Dioxide 26 BUN 18 H Creatinine 0.82 Estimated GFR > 60 BUN/Creatinine Ratio 22.0 Glucose 108 Lactate Calcium 9.6 Total Bilirubin 0.5 AST 37 H ALT 22 Alkaline Phosphatase 84 Total Protein 8.4 H Albumin 4.5 Globulin 3.9 Albumin/Globulin Ratio 1.2 Lipase 152 Procalcitonin 0.15 SARS-CoV-2 (PCR) 08/23/22 08/23/22 15:35 19:26 WBC RBC Hgb Hct MCV MCH MCHC RDW Plt Count Neut % (Auto) Lymph % (Auto) [place] % (Auto) Eos % (Auto) Baso % (Auto) Neut # (Auto) Lymph # (Auto) [place] # (Auto) Eos # (Auto) Baso # (Auto) PT INR APTT Sodium Potassium Chloride Carbon Dioxide BUN Creatinine Estimated GFR BUN/Creatinine Ratio Glucose Lactate 1.4 Calcium Total Bilirubin AST ALT Alkaline Phosphatase Total Protein Albumin Globulin Albumin/Globulin Ratio Lipase Procalcitonin SARS-CoV-2 (PCR) Negative Assessment & Plan Assessment & Plan narrative: Dulce Arreola 76-year-old female with a history of hypertension, GERD, depression, hypothyroidism, hyperlipidemia, and migraines presented to the ED for a dog bite 6 days ago that has had increased redness swelling and pain to the right forearm . Patient admitted for dog bite wound/cellulitis to right forearm. 1. Dog bite resulting in right forearm cellulitis, acute, present on admission -Right extremity CT -forearm phlegmon with surrounding cellulitis within the vulvar soft tissue distal forearm - WBC 11.3, neutrophils 7700, procalcitonin, lactate, and COVID are all negative -patient given vancomycin in ED -admit ABDIRIZAK Byrne at 80 cc/hour -wound and blood cultures pending -repeat procalcitonin/lactate in a.m., ordered ESR CRP -ortho to consult ordered -pain management, elevation, ice 2. Elevated blood pressure, without the diagnosis of hypertension, acute, present on admission -admit BP 174/79, patient's blood pressure resolved with pain management 138/61 -monitor blood pressure and vital signs for sepsis septic shock 3. Hyperlipidemia,Chronic, present on admission -continue simvastatin, replace with Lipitor 4. Hypothyroidism, acquired, chronic, present on admission -ordered TSH -continue levothyroxine 5. Depression, chronic, present on admission -continue sertraline 6. GERD, chronic, present on admission -continue omeprazole Code status: DNR DNI Surrogate decision maker: Antonio Díaz friend ARIC PCR: Negative DVT/VTE prophylaxis: Lovenox and SCDs Disposition: Patient admitted for observation expected length of stay less than 2 midnights I have utilized all available immediate resources to obtain, update, or review the patient's current medications. I confirmed that the patient's advanced care plan is present, Code status is documented and/or surrogate decision maker is listed in the patient's medical record. I have personally reviewed patient's chart notes from PCP, specialists, diagnostic imaging, and laboratory results.
[2022-08-23] MEDS: HYDROCODONE/ACET 5/325 TABLET 1 TAB PO (22:13)
[2022-08-23 23:35] VITALS: BP 154/66; PULSE 61; RESP 22; TEMP 36.4; O2SAT 95
[2022-08-23 23:40] VITALS: BMI 25.7
[2022-08-24] MEDS: SODIUM CHLORIDE 0.9% 1,000 ML 80 ML IV (00:19)
[2022-08-24] MEDS: PIPERACILLIN/TAZO 3.375 GM in SODIUM CHLORIDE 0.9% 100 ML IV ×3 (00:19→16:35)
[2022-08-24] MEDS: ACETAMINOPHEN 325 MG TABLET 650 MG PO (01:46)
[2022-08-24 04:35] VITALS: BP 138/61; PULSE 69; RESP 16; TEMP 36.2; O2SAT 98
[2022-08-24 05:50] LABS: Add Manual Diff / Slide Review NO; Basophils Absolute Auto 100 /uL (0-100); Basophils Percent Auto 0.5 % (0-2); Eosinophils Absolute Auto 300 /uL (0-450); Eosinophils Percent Auto 3.7 % (2-4); Hematocrit 32.2 % (36-46); Hemoglobin 10.7 g/dL (12.0-16.0); Lymphocytes Absolute Auto 1800 /uL (1100-4500); Lymphocytes Percent Auto 19.5 % (25-40); Mean Corpuscular HGB Conc 33.3 % (30-36); Mean Corpuscular Hemoglobin 30.6 PG (26-34); Mean Corpuscular Volume 92.1 fL (80-100); Monocytes Absolute Auto 700 /uL (0-900); Monocytes Percent Auto 7.3 % (3-14); Neutrophils Absolute Auto 6400 /uL (1500-7000); Platelet Count 198 X10^3/uL (150-400); Red Blood Cell Count 3.49 X10^6/uL (4.0-5.2); Red Cell Distribution Width 12.9 % (11.6-14.8); White Blood Cell Count 9.3 X10^3/uL (4.5-11.0)
[2022-08-24 05:59] LABS: Lactate (Lactic Acid) 0.9 mmol/L (0.7-2.1)
[2022-08-24 06:03] LABS: BUN Creatinine Ratio 18.4 (6-22); Blood Urea Nitrogen 14 mg/dL (7-17); Calcium 8.7 mg/dL (8.4-10.2); Carbon Dioxide 26 mmol/L (22-32); Chloride 104 mmol/L (98-107); Estimated Glomerular Filt Rate > 60 mL/min (>60); Glucose 128 mg/dL (80-110); HEMOLYSIS 16 (0-50); Potassium 3.8 mmol/L (3.4-5.1); Sodium 137 mmol/L (137-145)
[2022-08-24 06:17] LABS: Erythrocyte Sedimentation Rate 79 MM/HR (0-20); Procalcitonin 0.13 ng/mL (<0.5)
[2022-08-24 06:33] LABS: Appearance Urine UA CLEAR; Bilirubin Urine UA NEGATIVE (NEGATIVE); Color Urine UA YELLOW; Glucose Urine UA NEGATIVE (Negative); Ketones Urine UA NEGATIVE (NEGATIVE); Leukocyte Esterase Urine UA NEGATIVE (NEGATIVE); Nitrite Urine UA NEGATIVE (Negative); Occult Blood Urine UA NEGATIVE (Negative); Protein Urine UA NEGATIVE (Negative); Specific Gravity Urine UA 1.015 (1.000-1.035); Urobilinogen Urine UA 0.2 E.U./dL (0.2)
[2022-08-24 06:40] LABS: pH Urine UA 5.5 (4.5-8.0)
[2022-08-24 06:44] LABS: TSH w/ Reflex to FT4 3.44 uIU/mL (0.47-4.68)
[2022-08-24 07:14] LABS: Bacteria Urine None Seen; Culture Indicated Urine Cult Not Indicated; RBC Urine 0-1/HPF (0-5/HPF); Squamous Epithelial Cell Urine 0-1 /HPF (0-5/HPF); WBC Urine 0-1/HPF (0-5/HPF)
[2022-08-24 07:40] VITALS: BP 149/64; PULSE 70; RESP 18; TEMP 36.9; O2SAT 100
[2022-08-24] MEDS: HYDROCODONE/ACET 5/325 TABLET 1 TAB PO ×4 (08:22→20:23)
--- NOTE | 2022-08-24 09:00 | DI.RAD.S_ITS ---
PROCEDURE: XR CHEST 2V INDICATIONS: Upper extremity cellulitis TECHNIQUE: 2 views of the chest were acquired. COMPARISON: [facility], , CHEST 2 VIEW, 03/23/2012, 21:17. FINDINGS: Surgical changes and devices: None. Lungs and pleura: Lungs are clear. No pleural effusions or pneumothorax. Mediastinum: Mediastinal contours are normal. Heart size is normal. Bones and chest wall: No suspicious bony abnormalities. Soft tissues appear unremarkable. Generalized decrease in osseous mineralization noted. Wedge-shaped L1 compression fracture stable from 2011 IMPRESSION: No acute cardiopulmonary findings Approved by: Rell Alcantara M.D. on 08/24/2022 at 10:29
--- NOTE | 2022-08-24 09:00 | P.PN_ITS ---
Subjective Subjective Interval history: Patient feeling better. Less swelling of right upper extremity and decrease in area with erythemia. Less pain right upper extremity. Can move right hand easier due to less swelling. Exam Vital Signs (past 8 hours): - 08/24/22 04:35 08/24/22 07:40 Temperature 97.2 F L 98.5 F Pulse Rate 69 70 Respiratory Rate 16 18 Blood Pressure 138/61 149/64 H Pulse Oximetry 98 100 Oxygen Flow Rate 0 Oxygen Delivery Method Room Air Oxygen Flow Rate 0 Narrative Exam Narrative: General:? Patient is a well-developed, well-nourished in no distress at this time. HEENT:? Pupils equal and reactive to light extraocular movements normal. Trachea is midline. Head is normocephalic. Respiratory:? Chest is clear to auscultation. No wheezes or crackles. Cardio:? regular rate and rhythm without murmur, rubs, or gallops, no carotid bruit, no cardiac pulsations present. Abdomen:? Soft nontender, negative for organomegaly, or masses.? Bowel sounds are present in all 4 quadrants. Musculoskeletal:? With the exception of Right arm:Muscle strength and tone are equal within normal limits, no deformity, crepitus, effusions, cyanosis, clubbing or edema present.? Full range of motion intact radial and pedal pulses are normal. Right forearm.? Surgical pen used to outline erythema on admission and area of erythema is slightly decreasing.? At the central volar distal surface of the forearm,?there is area of bulging to the skin but not blistering and very tender at this site. No crepitus.? Strong radial pulse strong head setter brisk cap refills light touch intact to fingers and thumb.? Nontender wrist and elbow Neuro:? Alert and orientated x3, strength is +5/5 in all extremities, sensation to touch intact, no gross deficits noted of cranial nerves. Psych:? Patient has a well-kept appearance, appropriate affect, mental status attitude thought context and judgment are appropriate for age. Objective Labs 08/24/22 05:39 08/24/22 05:39 Labs: Laboratory Results - last 24 hr 08/23/22 08/23/22 08/23/22 15:35 15:35 15:35 WBC 11.3 H RBC 3.74 L Hgb 11.6 L Hct 34.6 L MCV 92.7 MCH 31.0 MCHC 33.4 RDW 12.9 Plt Count 249 Neut % (Auto) 68.2 Lymph % (Auto) 21.5 L [place] % (Auto) 7.2 Eos % (Auto) 2.1 Baso % (Auto) 1.0 Neut # (Auto) 7700 H Lymph # (Auto) 2400 [place] # (Auto) 800 Eos # (Auto) 200 Baso # (Auto) 100 ESR PT 12.1 INR 1.1 APTT 40 H Sodium 136 L Potassium 4.3 Chloride 100 Carbon Dioxide 26 BUN 18 H Creatinine 0.82 Estimated GFR > 60 BUN/Creatinine Ratio 22.0 Glucose 108 Lactate Calcium 9.6 Total Bilirubin 0.5 AST 37 H ALT 22 Alkaline Phosphatase 84 C-Reactive Protein Total Protein 8.4 H Albumin 4.5 Globulin 3.9 Albumin/Globulin Ratio 1.2 Lipase 152 Procalcitonin 0.15 TSH Urine Color Urine Appearance Urine pH Ur Specific [place] Urine Protein Urine Glucose (UA) Urine Ketones Urine Occult Blood Urine Nitrate Urine Bilirubin Urine Urobilinogen Ur Leukocyte Esterase Urine RBC Urine WBC Ur Squamous Epith Cells Urine Bacteria Ur Culture Indicated? SARS-CoV-2 (PCR) 08/23/22 08/23/22 08/23/22 15:35 15:35 19:26 WBC RBC Hgb Hct MCV MCH MCHC RDW Plt Count Neut % (Auto) Lymph % (Auto) [place] % (Auto) Eos % (Auto) Baso % (Auto) Neut # (Auto) Lymph # (Auto) [place] # (Auto) Eos # (Auto) Baso # (Auto) ESR PT INR APTT Sodium Potassium Chloride Carbon Dioxide BUN Creatinine Estimated GFR BUN/Creatinine Ratio Glucose Lactate 1.4 Calcium Total Bilirubin AST ALT Alkaline Phosphatase C-Reactive Protein Total Protein Albumin Globulin Albumin/Globulin Ratio Lipase Procalcitonin TSH 3.44 Urine Color Urine Appearance Urine pH Ur Specific [place] Urine Protein Urine Glucose (UA) Urine Ketones Urine Occult Blood Urine Nitrate Urine Bilirubin Urine Urobilinogen Ur Leukocyte Esterase Urine RBC Urine WBC Ur Squamous Epith Cells Urine Bacteria Ur Culture Indicated? SARS-CoV-2 (PCR) Negative 08/24/22 08/24/22 08/24/22 05:39 05:39 05:39 WBC 9.3 RBC 3.49 L Hgb 10.7 L Hct 32.2 L MCV 92.1 MCH 30.6 MCHC 33.3 RDW 12.9 Plt Count 198 Neut % (Auto) 69.0 Lymph % (Auto) 19.5 L [place] % (Auto) 7.3 Eos % (Auto) 3.7 Baso % (Auto) 0.5 Neut # (Auto) 6400 Lymph # (Auto) 1800 [place] # (Auto) 700 Eos # (Auto) 300 Baso # (Auto) 100 ESR 79 H PT INR APTT Sodium 137 Potassium 3.8 Chloride 104 Carbon Dioxide 26 BUN 14 Creatinine 0.76 Estimated GFR > 60 BUN/Creatinine Ratio 18.4 Glucose 128 H Lactate 0.9 Calcium 8.7 Total Bilirubin AST ALT Alkaline Phosphatase C-Reactive Protein 14.0 H Total Protein Albumin Globulin Albumin/Globulin Ratio Lipase Procalcitonin 0.13 TSH Urine Color Urine Appearance Urine pH Ur Specific [place] Urine Protein Urine Glucose (UA) Urine Ketones Urine Occult Blood Urine Nitrate Urine Bilirubin Urine Urobilinogen Ur Leukocyte Esterase Urine RBC Urine WBC Ur Squamous Epith Cells Urine Bacteria Ur Culture Indicated? SARS-CoV-2 (PCR) 08/24/22 06:15 WBC RBC Hgb Hct MCV MCH MCHC RDW Plt Count Neut % (Auto) Lymph % (Auto) [place] % (Auto) Eos % (Auto) Baso % (Auto) Neut # (Auto) Lymph # (Auto) [place] # (Auto) Eos # (Auto) Baso # (Auto) ESR PT INR APTT Sodium Potassium Chloride Carbon Dioxide BUN Creatinine Estimated GFR BUN/Creatinine Ratio Glucose Lactate Calcium Total Bilirubin AST ALT Alkaline Phosphatase C-Reactive Protein Total Protein Albumin Globulin Albumin/Globulin Ratio Lipase Procalcitonin TSH Urine Color Yellow Urine Appearance Clear Urine pH 5.5 Ur Specific [place] 1.015 Urine Protein Negative Urine Glucose (UA) Negative Urine Ketones Negative Urine Occult Blood Negative Urine Nitrate Negative Urine Bilirubin Negative Urine Urobilinogen 0.2 Ur Leukocyte Esterase Negative Urine RBC 0-1/hpf Urine WBC 0-1/hpf Ur Squamous Epith Cells 0-1 /hpf Urine Bacteria None seen Ur Culture Indicated? Cult not indicated SARS-CoV-2 (PCR) PFSH Medical History Depression GE reflux Hypercholesterolemia Hypothyroidism Surgical History (Updated 08/24/22 @ 06:23 by NEELIMA Hernandez) History of hip surgery Family History (Updated 08/24/22 @ 06:24 by Mikayla Hirsch [facility]) Mother Cancer Father Glaucoma Social History household members: none Smoking Status: Never smoker Assessment & Plan Assessment & Plan narrative: 1. Dog bite resulting in right forearm cellulitis, acute, present on admission -Right extremity CT -forearm phlegmon with surrounding cellulitis within the vulvar soft tissue distal forearm - WBC 11.3, neutrophils 7700, procalcitonin, lactate, and COVID are all negative on admission. White blood cell count today resolved to normal 9.3. ESR 79, C- reactive protein 14.0. Procalcitonin remains normal. -patient given vancomycin in ED -continue - Zosyn -continue -wound and blood cultures pending -ortho to consult ordered -discussed with Dr. Quintero and he will see. -pain management, elevation, ice 2. Elevated blood pressure,? without the diagnosis of hypertension, acute, pres ent on admission -admit BP 174/79, patient's blood pressure resolved with pain management 138/61, today 149/64. -monitor blood pressure and vital signs for sepsis septic shock 3. Hyperlipidemia,Chronic, present on admission -continue simvastatin, replace with Lipitor 4. Hypothyroidism, acquired, chronic, present on admission -TSH -normal -continue levothyroxine 5. Depression, chronic, present on admission -continue sertraline 6. GERD, chronic, present on admission -continue omeprazole Follow clinically and labs. Code status:? DNR DNI Surrogate decision maker:? Antonio Díaz friend COVID PCR:? Negative DVT/VTE prophylaxis:? Lovenox and SCDs
[2022-08-24] MEDS: ENOXAPARIN 40 MG/0.4 ML SYRINGE SUBCUT (09:57)
--- NOTE | 2022-08-24 10:38 | PT-IP ANOTE ---
Patient screened for appropriateness for PT. Per nursing, patient is independent and no safety concerns with mobility. No skilled therapy indicated. PT orders d/c.
[2022-08-24 11:00] VITALS: BP 138/64; PULSE 69; RESP 18; TEMP 36.8; O2SAT 97
--- NOTE | 2022-08-24 11:50 | CM.DANOTE ---
Initial Discharge Assessment Note: Case reviewed, met with patient. Introduced self and role. Payer: Medicare and [employer] PCP: Lillie Mchugh 76 year old female sustained a dog bite a week ago from her blind dog (rescue). She was seen last week in ED. She was admitted yesterday with increased redness , swelling and pain to RFA. The swelling area is shiny. Dr Quintero to be in today to see patient. Patient lives alone in [place]. Her friend Sheeba in visiting and she is POA. She had a neighbor in visiting as well. Wound and blood cultures are pending. Plan: When medically cleared, discharge home to previous living arrangement. BRANDON Discharge Planning/Care Management CM Discharge Assessment Start: 08/24/22 10:34 Freq: Status: Active Protocol: Document 08/24/22 10:35 (Rec: 08/24/22 10:35 [id number]) Discharge Planning Assessment Assigned Senior Technical Writer Jeri Walker RN/LEMUELP Advance Directives? Yes Advance Directives on File Yes History Provided By Patient Prior Living Arrangements House Household Members none Document 08/24/22 11:49 (Rec: 08/24/22 11:49 [id number]) Discharge Planning Assessment Assigned Senior Technical Writer Jeri Walker RN/LEMUELP Advance Directives? Yes Advance Directives on File Yes History Provided By Patient Prior Living Arrangements House Household Members none Type of transporation used prior to Drives own vehicle admit Independent with ADL's Yes Is patient alert and oriented? Yes Caregiver for Another No Additional Comment Friend to transport Review Status In Process Next Review Type Continued Stay Review
--- NOTE | 2022-08-24 12:32 | PM.CN ---
History of Present Illness Consult details Date Patient Seen: 08/24/22 Time Patient Seen: 12:32 Chief complaint: Dog bite Narrative: 76-year-old female who sustained a dog bite to the right volar aspect of the forearm about a week ago. Patient started to noticed increased swelling and redness and was seen in the emergency room yesterday started on antibiotics and admitted for cellulitis. Patient states she has noticed improvement since being on the antibiotics less swelling and redness but things have not fully resolved. Meds Home Medications and Allergies Home Medications Medication Instructions Recorded Confirmed Type [facility] 06/24/18 History calcitonin (salmon) 200 1 spray intranasal (ALT) DAILY 06/24/18 06/24/18 History unit/actuation nasal spray cetirizine 10 mg capsule (Zyrtec) 10 mg PO DAILY 06/24/18 06/24/18 History cholecalciferol (vitamin D3) 25 1,000 unit PO DAILY 06/24/18 08/24/22 History mcg (1,000 unit) capsule (Vitamin D3) coQ10 (ubiquinol) 06/24/18 History levothyroxine 88 mcg tablet 75 mcg PO DAILY 06/24/18 08/24/22 History magnesium oxide 400 mg PO BID 06/24/18 06/24/18 History omeprazole 10 mg capsule,delayed 10 - 20 mg PO DAILY 06/24/18 06/24/18 History release sertraline 25 mg tablet 25 mg PO DAILY 06/24/18 06/24/18 History simvastatin 20 mg tablet 20 mg PO BEDTIME 06/24/18 06/24/18 History triamcinolone acetonide 0.025 % 1 applic topical BID 06/24/18 06/24/18 History topical cream triazolam 0.25 mg tablet 0.25 mg PO PRN PRN Migraine 06/24/18 06/24/18 History Headache vitamin B complex 06/24/18 History aspirin 81 mg tablet 81 mg PO DAILY 08/24/22 08/24/22 History Allergies Allergy/AdvReac Type Severity Reaction Status Date / Time meperidine [From DEMEROL] Allergy Unknown Hallucinati Verified 09/16/20 00:15 ons Exam Vital Signs (past 8 hours): - 08/24/22 04:35 08/24/22 07:40 08/24/22 11:00 Temperature 97.2 F L 98.5 F 98.3 F Pulse Rate 69 70 69 Respiratory Rate 16 18 18 Blood Pressure 138/61 149/64 H 138/64 Pulse Oximetry 98 100 97 Oxygen Flow Rate 0 0 Oxygen Delivery Method Room Air Oxygen Flow Rate 0 Narrative Exam Narrative: Area of redness and swelling involving the volar aspect of the forearm. Patient is able to fully flex and extend the wrist and fingers. Has some discomfort while doing so but is able to do so. Ulnar, median, and radial nerve are intact to both motor and sensory function. Area of swelling around the region of the laceration. No sign of any flexor tenosynovitis. Objective Labs 08/24/22 05:39 08/24/22 05:39 Labs: Laboratory Results - last 24 hr 08/23/22 08/23/22 08/23/22 15:35 15:35 15:35 WBC 11.3 H RBC 3.74 L Hgb 11.6 L Hct 34.6 L MCV 92.7 MCH 31.0 MCHC 33.4 RDW 12.9 Plt Count 249 Neut % (Auto) 68.2 Lymph % (Auto) 21.5 L [place] % (Auto) 7.2 Eos % (Auto) 2.1 Baso % (Auto) 1.0 Neut # (Auto) 7700 H Lymph # (Auto) 2400 [place] # (Auto) 800 Eos # (Auto) 200 Baso # (Auto) 100 ESR PT 12.1 INR 1.1 APTT 40 H Sodium 136 L Potassium 4.3 Chloride 100 Carbon Dioxide 26 BUN 18 H Creatinine 0.82 Estimated GFR > 60 BUN/Creatinine Ratio 22.0 Glucose 108 Lactate Calcium 9.6 Total Bilirubin 0.5 AST 37 H ALT 22 Alkaline Phosphatase 84 C-Reactive Protein Total Protein 8.4 H Albumin 4.5 Globulin 3.9 Albumin/Globulin Ratio 1.2 Lipase 152 Procalcitonin 0.15 TSH Urine Color Urine Appearance Urine pH Ur Specific [place] Urine Protein Urine Glucose (UA) Urine Ketones Urine Occult Blood Urine Nitrate Urine Bilirubin Urine Urobilinogen Ur Leukocyte Esterase Urine RBC Urine WBC Ur Squamous Epith Cells Urine Bacteria Ur Culture Indicated? SARS-CoV-2 (PCR) 08/23/22 08/23/22 08/23/22 15:35 15:35 19:26 WBC RBC Hgb Hct MCV MCH MCHC RDW Plt Count Neut % (Auto) Lymph % (Auto) [place] % (Auto) Eos % (Auto) Baso % (Auto) Neut # (Auto) Lymph # (Auto) [place] # (Auto) Eos # (Auto) Baso # (Auto) ESR PT INR APTT Sodium Potassium Chloride Carbon Dioxide BUN Creatinine Estimated GFR BUN/Creatinine Ratio Glucose Lactate 1.4 Calcium Total Bilirubin AST ALT Alkaline Phosphatase C-Reactive Protein Total Protein Albumin Globulin Albumin/Globulin Ratio Lipase Procalcitonin TSH 3.44 Urine Color Urine Appearance Urine pH Ur Specific [place] Urine Protein Urine Glucose (UA) Urine Ketones Urine Occult Blood Urine Nitrate Urine Bilirubin Urine Urobilinogen Ur Leukocyte Esterase Urine RBC Urine WBC Ur Squamous Epith Cells Urine Bacteria Ur Culture Indicated? SARS-CoV-2 (PCR) Negative 08/24/22 08/24/22 08/24/22 05:39 05:39 05:39 WBC 9.3 RBC 3.49 L Hgb 10.7 L Hct 32.2 L MCV 92.1 MCH 30.6 MCHC 33.3 RDW 12.9 Plt Count 198 Neut % (Auto) 69.0 Lymph % (Auto) 19.5 L [place] % (Auto) 7.3 Eos % (Auto) 3.7 Baso % (Auto) 0.5 Neut # (Auto) 6400 Lymph # (Auto) 1800 [place] # (Auto) 700 Eos # (Auto) 300 Baso # (Auto) 100 ESR 79 H PT INR APTT Sodium 137 Potassium 3.8 Chloride 104 Carbon Dioxide 26 BUN 14 Creatinine 0.76 Estimated GFR > 60 BUN/Creatinine Ratio 18.4 Glucose 128 H Lactate 0.9 Calcium 8.7 Total Bilirubin AST ALT Alkaline Phosphatase C-Reactive Protein 14.0 H Total Protein Albumin Globulin Albumin/Globulin Ratio Lipase Procalcitonin 0.13 TSH Urine Color Urine Appearance Urine pH Ur Specific [place] Urine Protein Urine Glucose (UA) Urine Ketones Urine Occult Blood Urine Nitrate Urine Bilirubin Urine Urobilinogen Ur Leukocyte Esterase Urine RBC Urine WBC Ur Squamous Epith Cells Urine Bacteria Ur Culture Indicated? SARS-CoV-2 (PCR) 08/24/22 06:15 WBC RBC Hgb Hct MCV MCH MCHC RDW Plt Count Neut % (Auto) Lymph % (Auto) [place] % (Auto) Eos % (Auto) Baso % (Auto) Neut # (Auto) Lymph # (Auto) [place] # (Auto) Eos # (Auto) Baso # (Auto) ESR PT INR APTT Sodium Potassium Chloride Carbon Dioxide BUN Creatinine Estimated GFR BUN/Creatinine Ratio Glucose Lactate Calcium Total Bilirubin AST ALT Alkaline Phosphatase C-Reactive Protein Total Protein Albumin Globulin Albumin/Globulin Ratio Lipase Procalcitonin TSH Urine Color Yellow Urine Appearance Clear Urine pH 5.5 Ur Specific [place] 1.015 Urine Protein Negative Urine Glucose (UA) Negative Urine Ketones Negative Urine Occult Blood Negative Urine Nitrate Negative Urine Bilirubin Negative Urine Urobilinogen 0.2 Ur Leukocyte Esterase Negative Urine RBC 0-1/hpf Urine WBC 0-1/hpf Ur Squamous Epith Cells 0-1 /hpf Urine Bacteria None seen Ur Culture Indicated? Cult not indicated SARS-CoV-2 (PCR) PFSH Medical History Depression GE reflux Hypercholesterolemia Hypothyroidism Surgical History History of hip surgery Family History Mother Cancer Father Glaucoma Social History household members: none Tobacco & Substance Use Smoking Status: Never smoker Assessment & Plan Assessment & Plan narrative: Patient status post dog bite to the volar aspect of the forearm. We will see how well she continues to improve with antibiotics. I have made her NPO after midnight. If there is not any significant improvement by tomorrow we will take her to the operating room for an irrigation and debridement.
[2022-08-24 16:16] VITALS: BP 128/62; PULSE 74; RESP 18; TEMP 37; O2SAT 98
[2022-08-24] MEDS: SODIUM CHLORIDE 0.9% 250 ML 21 ML IV (16:36)
[2022-08-24 20:00] VITALS: BP 122/58; PULSE 80; RESP 19; TEMP 36.4; O2SAT 99
[2022-08-24 23:51] VITALS: BP 136/52; PULSE 84; RESP 19; TEMP 36.8; O2SAT 99
[2022-08-25] VITALS (13 sets, daily range): BP systolic 128–152; BP diastolic 53–69; PULSE 70–80; RESP 12–18; TEMP 36.5–37.1; O2SAT 94–99
[2022-08-25] MEDS: HYDROCODONE/ACET 5/325 TABLET 1 TAB PO ×3 (05:05→15:25)
[2022-08-25 06:24] LABS: Add Manual Diff / Slide Review NO; Basophils Absolute Auto 100 /uL (0-100); Basophils Percent Auto 0.5 % (0-2); Eosinophils Absolute Auto 300 /uL (0-450); Eosinophils Percent Auto 3.6 % (2-4); Hematocrit 31.6 % (36-46); Hemoglobin 10.7 g/dL (12.0-16.0); Lymphocytes Absolute Auto 1600 /uL (1100-4500); Lymphocytes Percent Auto 16.1 % (25-40); Mean Corpuscular HGB Conc 33.8 % (30-36); Mean Corpuscular Hemoglobin 31.2 PG (26-34); Mean Corpuscular Volume 92.2 fL (80-100); Monocytes Absolute Auto 800 /uL (0-900); Monocytes Percent Auto 8.7 % (3-14); Neutrophils Absolute Auto 6800 /uL (1500-7000); Neutrophils Percent Auto 71.1 % (50-75); Platelet Count 249 X10^3/uL (150-400); Red Blood Cell Count 3.43 X10^6/uL (4.0-5.2); Red Cell Distribution Width 12.8 % (11.6-14.8); White Blood Cell Count 9.6 X10^3/uL (4.5-11.0)
[2022-08-25 06:35] LABS: BUN Creatinine Ratio 18.6 (6-22); Blood Urea Nitrogen 16 mg/dL (7-17); Carbon Dioxide 27 mmol/L (22-32); Chloride 102 mmol/L (98-107); Estimated Glomerular Filt Rate > 60 mL/min (>60); Glucose 101 mg/dL (80-110); HEMOLYSIS < 15 (0-50); Sodium 137 mmol/L (137-145)
[2022-08-25 06:44] LABS: Erythrocyte Sedimentation Rate 80 MM/HR (0-20)
[2022-08-25 06:49] LABS: C-Reactive Protein Quant 18.2 mg/dL (<1.0)
--- NOTE | 2022-08-25 08:27 | PM.PN.1 ---
Subjective Subjective Interval history: Throughout the night, the patient's right forearm drained on its own and now has an open wound right forearm. This has released the pressure of the right forearm and there is some decrease in erythema of the right forearm as well. Currently is NPO waiting for debridement in the OR. The surgeon will decide if this will still occur. Exam Vital Signs (past 8 hours): - 08/25/22 04:00 Temperature 97.9 F Pulse Rate 80 Respiratory Rate 14 Blood Pressure 136/62 Pulse Oximetry 96 Oxygen Flow Rate 0 Oxygen Delivery Method Room Air Oxygen Flow Rate 0 Narrative Exam Narrative: General:? Patient is a well-developed, well-nourished in no distress at this time. HEENT:? Pupils equal and reactive to light extraocular movements normal.? Trachea is midline.? Head is normocephalic. Respiratory:? Chest is clear to auscultation.? No wheezes or crackles. Cardio:? regular rate and rhythm with no extra sounds or murmurs Abdomen:? Soft nontender, negative for organomegaly, or masses.? Bowel sounds normal nontender. Musculoskeletal:? Right forearm is dressed post draining of the right forearm abscess. Dereased erythema in the skin surrounding the open wound. Less swelling of the right hand. Neuro: Normal sensation of right hand. Psych:? Patient has a well-kept appearance, appropriate affect, mental status attitude thought context and judgment are appropriate for age. Objective Labs 08/25/22 06:00 08/25/22 06:00 Labs: Laboratory Results - last 24 hr 08/25/22 08/25/22 08/25/22 06:00 06:00 06:00 WBC 9.6 RBC 3.43 L Hgb 10.7 L Hct 31.6 L MCV 92.2 MCH 31.2 MCHC 33.8 RDW 12.8 Plt Count 249 Neut % (Auto) 71.1 Lymph % (Auto) 16.1 L [place] % (Auto) 8.7 Eos % (Auto) 3.6 Baso % (Auto) 0.5 Neut # (Auto) 6800 Lymph # (Auto) 1600 [place] # (Auto) 800 Eos # (Auto) 300 Baso # (Auto) 100 ESR 80 H Sodium 137 Potassium 4.0 Chloride 102 Carbon Dioxide 27 BUN 16 Creatinine 0.86 Estimated GFR > 60 BUN/Creatinine Ratio 18.6 Glucose 101 Calcium 9.0 C-Reactive Protein 18.2 H PFSH Medical History Depression GE reflux Hypercholesterolemia Hypothyroidism Surgical History History of hip surgery Family History Mother Cancer Father Glaucoma Social History household members: none Smoking Status: Never smoker Assessment & Plan Assessment & Plan narrative: 1. Dog bite resulting in right forearm cellulitis, acute, present on admission -Right extremity CT -forearm phlegmon with surrounding cellulitis within the vulvar soft tissue distal forearm - WBC 11.3, neutrophils 7700, procalcitonin, lactate, and COVID are all negative on admission.? White blood cell count today resolved to normal 9.3.? ESR 79, C-reactive protein 14.0.? Procalcitonin remains normal. -patient given vancomycin in ED -continue - Zosyn -continue -right forearm phlegmon developed an abscess which drained on its own throughout the night. -wound and blood cultures -blood cultures negative. Wound culture still pending. -ortho to consult ordered -discussed with Dr. Quintero and and possible pending surgery today. -pain management, elevation, ice 2. Elevated blood pressure,? without the diagnosis of hypertension, acute, present on admission -admit BP 174/79, patient's blood pressure resolved with pain management 138/61, yesterday 149/64. Today normal with 136/62. -monitor blood pressure and vital signs for sepsis septic shock 3. Hyperlipidemia,Chronic, present on admission -continue simvastatin, replace with Lipitor 4. Hypothyroidism, acquired, chronic, present on admission -TSH -normal -continue levothyroxine 5. Depression, chronic, present on admission -continue sertraline 6. GERD, chronic, present on admission -continue omeprazole Follow clinically and labs. Code status:? DNR DNI Surrogate decision maker:? Antonio Díaz friend COVID PCR:? Negative DVT/VTE prophylaxis:? Lovenox and SCDs
[2022-08-25] MEDS: PIPERACILLIN/TAZO 3.375 GM in SODIUM CHLORIDE 0.9% 100 ML IV ×4 (08:42→16:21)
[2022-08-25 09:02] LABS: C-Reactive Protein Quant 17.8 mg/dL (<1.0)
--- NOTE | 2022-08-25 09:15 | PC.NURSE ---
Addendum entered by Roseanna Triplett R.N. 08/25/22 15:52: Patient complained of further pain to her r.arm from previous I&D, given hydrocodone and helpful. Addendum entered by Roseanna Triplett R.N. 08/25/22 14:53: Patient complained of pain to R.arm, asked to try some tylenol. This was given about half hour ago. Will reassess patients pain level soon. She is resting in bed supine. Addendum entered by Roseanna Triplett R.N. 08/25/22 10:29: Patient is back from surgery. She had an I&D of her dog bite to r.arm. They washed it and debrided more of the area, packed with iodiform, sutures and covered with gauze, kurlex, and deepika. CMS wnl and fingers are cool but palpable pulses. She is resting supine at this time. Original Note: Assess- Patient is alert and oriented x4. Patients dog bit her and she has an abcess with pus present. There is swelling and warmth to hand and arm. Patient just left at 0815 for an I&D to her arm. Meds will be given when patient gets back from surgery. IV antibiotic sent with patient, and one vicodin given when INVESTMENT BANKING ANALYST up to get patient.
[2022-08-25] MEDS: BUPIVACAINE 0.25% (PF) 30 ML, EPINEPHrine 0.15 MG INJ (09:30)
--- NOTE | 2022-08-25 09:47 | SUR.OPER ---
Supine on padded OR bed, head on pillow,LEFT arms secured on padded arm boards at <90 degrees abduction, legs uncrossed, safety belt at thigh, tape over blanket over lower legs. RIGHT ARM TO HAND TABLE
--- NOTE | 2022-08-25 09:48 | PM.OP.1 ---
Operative Date/Time/Diagnoses Date of procedure: 08/25/22 Time of procedure: 09:00 Pre-op diagnosis: Right forearm infection status post dog bite Post-op diagnosis: same Procedure & Clinicians Procedure: Irrigation and debridement of a right forearm infection Same procedure as scheduled: Yes Indications: Right forearm infection status post dog bite Surgeon: Artemio Quintero Click Yes if Unassisted: Yes Anesthesia Type: General Operative Notes Findings: Purulent drainage from the volar forearm was tracking deep into the forearm but not involving the bony structures. Significant amount of purulence noted. Closure Type: primary Specimen(s): other (Fluid sent for cultures and sensitivities) Estimated Blood Loss (mL): 5 Tourniquet time (min): 15 Procedure in detail: On date of service, patient was met in the holding area where her operative site was signed and witnessed by the OR staff. Surgeries once again discussed with the patient a remaining questions and concerns she had were answered fully. Patient was taken back to the operating theater and placed on the operating table in a supine position. Great care was taken to ensure that all bony prominences were appropriately padded. Well-padded tourniquet was placed along the upper extremity. Time-out was performed verifying patient's name, procedure, and operative site. Right arm was elevated for exsanguination no Esmarch was used. Tourniquet was turned up to 250 mmHg. Incision was made centered over the area of swelling in the volar forearm. Ten blade was used to incise through skin and fascial tissue. There was a significant amount of purulence that was expressed. This was swabbed and sent for cultures and sensitivities. Pickups and tenotomies were used to bluntly dissect down past the superficial musculature. The infection tracked between the superficial muscles to the deeper tissue but not involving the bony structure. No sign of any other pockets of abscess formation or fluid collections. Any necrotic or degenerative tissue was debrided and the open wound was copiously irrigated with saline. Once it was felt that we are able to fully clean out the volar forearm it was packed with iodoform and loosely closed with 3-0 nylon. The hand was then cleaned, dried, and dressed and patient was extubated and taken to the PACU in stable condition. Complications: none Post-operative Condition: stable Disposition: Acute Care Plan for aftercare: Patient will need a check tomorrow. As long as there has been significant resolution her cellulitis the patient should be able to be discharged tomorrow antibiotics. We will need a wound check in 2-3 days after discharge.
[2022-08-25] MEDS: OXYCODONE IR 5 MG TABLET PO (10:00)
[2022-08-25] MEDS: PANTOPRAZOLE DR 20 MG TABLET PO (10:33)
[2022-08-25] MEDS: ASPIRIN 81 MG CHEW TAB PO (10:33)
[2022-08-25] MEDS: ENOXAPARIN 40 MG/0.4 ML SYRINGE SUBCUT (10:33)
[2022-08-25] MEDS: LEVOTHYROXINE 75 MCG TABLET PO (10:34)
--- NOTE | 2022-08-25 10:53 | CM.DPNOTE ---
Discharge Planning Note Patient in surgery for RFA abscess this morning. Plan: Follow for needs postop. Jeri Walker RN/DCP
[2022-08-25] MEDS: ACETAMINOPHEN 325 MG TABLET 650 MG PO (14:25)
[2022-08-25] MEDS: SERTRALINE 50 MG TABLET 25 MG PO (20:25)
[2022-08-25] MEDS: LORATADINE 10 MG TABLET PO (20:25)
[2022-08-26] VITALS: BP 116/55; PULSE 72; RESP 18; TEMP 36.8; O2SAT 96
[2022-08-26] MEDS: PIPERACILLIN/TAZO 3.375 GM in SODIUM CHLORIDE 0.9% 100 ML IV ×2 (00:43→08:26)
[2022-08-26] MEDS: MAGNESIUM OXIDE 400 MG TABLET PO ×2 (00:43→08:25)
[2022-08-26 04:00] VITALS: BP 119/56; PULSE 78; RESP 19; TEMP 36.1; O2SAT 99
[2022-08-26] MEDS: LEVOTHYROXINE 75 MCG TABLET PO (05:08)
[2022-08-26 06:05] LABS: Add Manual Diff / Slide Review NO; Basophils Absolute Auto 0 /uL (0-100); Basophils Percent Auto 0.5 % (0-2); Eosinophils Absolute Auto 0 /uL (0-450); Eosinophils Percent Auto 0.2 % (2-4); Hematocrit 30.2 % (36-46); Hemoglobin 10.2 g/dL (12.0-16.0); Lymphocytes Absolute Auto 1500 /uL (1100-4500); Lymphocytes Percent Auto 15.7 % (25-40); Mean Corpuscular HGB Conc 33.9 % (30-36); Mean Corpuscular Hemoglobin 31.1 PG (26-34); Mean Corpuscular Volume 91.8 fL (80-100); Monocytes Absolute Auto 800 /uL (0-900); Monocytes Percent Auto 9.1 % (3-14); Neutrophils Absolute Auto 7000 /uL (1500-7000); Neutrophils Percent Auto 74.5 % (50-75); Platelet Count 304 X10^3/uL (150-400); Red Blood Cell Count 3.29 X10^6/uL (4.0-5.2); Red Cell Distribution Width 12.5 % (11.6-14.8); White Blood Cell Count 9.4 X10^3/uL (4.5-11.0)
[2022-08-26 06:27] LABS: C-Reactive Protein Quant 15.1 mg/dL (<1.0)
[2022-08-26] MEDS: HYDROCODONE/ACET 5/325 TABLET 1 TAB PO (06:38)
[2022-08-26 08:00] VITALS: BP 128/63; PULSE 71; RESP 17; TEMP 36.2; O2SAT 98
[2022-08-26] MEDS: ASPIRIN 81 MG CHEW TAB PO (08:25)
[2022-08-26] MEDS: PANTOPRAZOLE DR 20 MG TABLET PO (08:25)
[2022-08-26] MEDS: CHOLECALCIFEROL (VITAMIN D3) 1,000 UNIT TABLET 1000 UNIT PO (08:25)
--- NOTE | 2022-08-26 10:19 | PT-IP ANOTE ---
Per nursing, no mobility concerns noted for this pt. PT was ordered earlier in hospital course and then discharged due to no needs. Will discharge orders again assuming PT was ordered in error. OT to see pt to address UE ROM and any other concerns.
--- NOTE | 2022-08-26 10:57 | CM.DPC ---
DCP Discharge Home Per MD, pt is medically stable to d/c home today with no identified barriers to discharge. PT confirms they have cleared pt for safe d/c home and no needs. Plan: Patient to d/c home today via friend POV and outpt f/u with Ortho and no further SW needs at this time. MARIA ISABEL Murguia
[2022-08-26 12:00] VITALS: BP 129/54; PULSE 72; RESP 17; TEMP 36.6; O2SAT 95
--- NOTE | 2022-08-26 12:14 | P.PN_ITS ---
Subjective Subjective Date Patient Seen: 08/26/22 Time Patient Seen: 07:15 Interval history: Patient is awake sitting up in bed this morning icing her forearm. She states that her arm still aches a little bit but the hydrocodone/acetaminophen helps bring down her pain level. She complains that her fingers on the operative arm are a little bit cold. GONZÁLEZ bandage was rewrapped little bit looser and patient noted that it felt better. Patient denies numbness or tingling in the distal extremity. Exam Vital Signs (past 8 hours): - 08/26/22 08:00 Temperature 97.1 F L Pulse Rate 71 Respiratory Rate 17 Blood Pressure 128/63 Pulse Oximetry 98 Oxygen Flow Rate 0 Oxygen Delivery Method Room Air Oxygen Flow Rate 0 Narrative Exam Narrative: Pleasant 76-year-old female. Awake, alert, and oriented. Intraoperative dressing clean, dry, and intact wrapped in González bandage which was rewrapped today. Fingers of right hand slightly cooler to touch than the left. Capillary refill less than 2 seconds. Strength and sensation intact to bilateral upper extremities. Compartments soft. Objective Labs 08/26/22 05:50 08/25/22 06:00 Labs: Laboratory Results - last 24 hr 08/26/22 08/26/22 05:50 05:50 WBC 9.4 RBC 3.29 L Hgb 10.2 L Hct 30.2 L MCV 91.8 MCH 31.1 MCHC 33.9 RDW 12.5 Plt Count 304 Neut % (Auto) 74.5 Lymph % (Auto) 15.7 L [place] % (Auto) 9.1 Eos % (Auto) 0.2 L Baso % (Auto) 0.5 Neut # (Auto) 7000 Lymph # (Auto) 1500 [place] # (Auto) 800 Eos # (Auto) 0 Baso # (Auto) 0 C-Reactive Protein 15.1 H PFSH Medical History Depression GE reflux Hypercholesterolemia Hypothyroidism Surgical History History of hip surgery Family History Mother Cancer Father Glaucoma Social History household members: none Smoking Status: Never smoker Assessment & Plan Post-op Postoperative Procedures: Procedures Operation Date: 08/24/22 09:30 <No data on this case meets the specified criteria> Operation Date: 08/25/22 09:30 Actual Procedure Side Surgeon p Incision and Drainage Wound/Extremity Right Artemio Quintero MD Postoperative day: 1 Postoperative status: doing well Postoperative plan: routine post-op care Postoperative plan narrative: Keep dressing clean, dry, and intact until follow up with Orthopedics. May remove and replace González bandage if it feels tight or becomes soiled. Follow up with Orthopedics in 2-3 days for wound check. Start oral antibiotics upon discharge and complete prescribed course. Continue with multimodal pain regimen including hydrocodone/acetaminophen as needed and wean to acetaminophen only.
--- NOTE | 2022-08-26 13:04 | OT.IP.EVAL ---
Surgery Performed Operation Date: 08/24/22 09:30 <No data on this case meets the specified criteria> Operation Date: 08/25/22 09:30 Actual Procedures p Incision and Drainage Wound/Extremity(Right) - Artemio Quintero MD Past Medical History (Last Reviewed 08/26/22 @ 12:19 by Jeanie Urban PA-C) Depression GE reflux Hypercholesterolemia Hypothyroidism Surgical History (Last Reviewed 08/26/22 @ 12:19 by Jeanie Urban PA-C) History of hip surgery Occupational Therapy Inpatient Evaluation/Re-Eval M1 PT/OT-IP Prior Functional Status Start: 08/26/22 13:09 Freq: NEEDED Status: Active Protocol: Document 08/26/22 13:09 CGR (Rec: 08/26/22 13:25 CGR [id number]) Medical Review Prior Functional Status Medical History Reviewed Yes Communication Pt is an effective verbal communicator. Mobility and Gait Pt was IND in all functional mobility at baseline. Activities of Daily Living and IADL's Pt was IND in all ADLs at baseline. Social History Household Members none Living Arrangements House Number of Floors (Floors) Two Floors Number of Stairs To Enter/Railing? 7 then 8 steps with right rail assending to get to the main floor. Can stay on the main floor for all needs. 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 M2 OT-IP Current Condition Start: 08/26/22 13:09 Freq: Status: Active Protocol: Document 08/26/22 13:09 CGR (Rec: 08/26/22 13:25 CGR [id number]) Occupational Therapy Current Condition Current Condition Evaluation Date 08/26/22 Treatment Diagnosis dog bite with cellulitis, 08/25 I&D Diagnosis Onset Date 08/23/22 M3 OT- IP Subjective and Pain Start: 08/26/22 13:09 Freq: Status: Active Protocol: Document 08/26/22 13:09 CGR (Rec: 08/26/22 13:25 CGR [id number]) OT- Subjective Occupational Therapy Visit Type Type Initial Evaluation Visit Start Time 12:43 Visit Stop Time 13:04 Total Visit Minutes 11 OT Pain Assessment Pain When Pain Assessed At Rest Pain Present Pain Present Denied Pain M4 OT- IP ADL's Start: 08/26/22 13:09 Freq: Status: Active Protocol: Document 08/26/22 13:09 CGR (Rec: 08/26/22 13:25 CGR [id number]) OT TUD-Xbre-Cpxnomx Comments OT Self-Feeding Comments not meal time OT ADL-Grooming Comments OT Grooming Comments not performed OT ADL-Oral Care Comments Oral Care Comments not performed OT ADL-Dressing General Eval Lower Body Dressing Ability Independent Areas Needing Assistance Socks OT ADL-Toileting General Evaluation Toileting Ability Independent Comments OT Toileting Comments urination seated on toielt OT ADL-Bathing Comments OT Bathing Comments not performed M5 OT- IP IADL's Start: 08/26/22 13:09 Freq: Status: Active Protocol: Document 08/26/22 13:09 CGR (Rec: 08/26/22 13:25 CGR [id number]) OT-Instrumental Activities of Daily Living Deficits IADL Deficits Identified No Deficits Home Safety Awareness Awareness of Need for Assistance at Home Good Awareness Ability to Problem Solve Emergency Able to Problem Solve Situations Medication Management Medication Management No Deficits Identified Money Management Money Management No Deficits Identified Meal Preparation Meal Preparation No Deficits Identified Teachers' Aide Teachers' Aide No Deficits Identified Driving Driving Comments Pt is an active driver starting gate at baseline M6 OT- IP Functional Cognition Start: 08/26/22 13:09 Freq: Status: Active Protocol: Document 08/26/22 13:09 CGR (Rec: 08/26/22 13:25 CGR [id number]) Cognitive Factors Limiting Selfcare Function Cognitive Ability Level of Alertness Alert Patient Orientation Name,Age,Birthday,Month,Date, Year,Day of Week,Place, Situation Attention Span Ability Capable of Focused Attention, Capable of Sustained Attention Ability to Follow Commands Able to Follow Multi-Step Commands OT- Vision and Hearing OT- Hearing Assessment OT- Hearing Assessment WFL OT- Vision Assessment Visual Acuity Glasses For Reading Visual Attentiveness WFL Occular Pursuits WFL Visual Convergence WFL M7 OT- IP Mobility and Balance Start: 08/26/22 13:09 Freq: Status: Active Protocol: Document 08/26/22 13:09 CGR (Rec: 08/26/22 13:25 CGR [id number]) OT- Bed Mobility Assessment Supine to Sit Supine to Sit Assist Independent,Head of Bed Elevated Sit to Supine Sit to Supine Assist Independent,Head of Bed Elevated Scooting Scooting to Edge of Bed Independent OT-Transfer Assessment Sit to and From Stand Sit to and from Stand Independent Transfers Transfer Ability Independent Technique Transfer Destination Bed,Chair,Toilet Transfer Technique Stand Step Pivot Devices Transfer Assistive Devices None Comments Mobility Comments Pt had a loss of balance standing at [facility] but was able to right herself without assist. OT- Gait Assessment Gait Gait Assistance Required: Independent OT- Balance Assessment Sitting Balance and Reactions Static Sitting Balance Ability Normal Dynamic Sitting Balance Ability Normal M8 OT- IP Objective Assessments Start: 08/26/22 13:09 Freq: Status: Active Protocol: Document 08/26/22 13:09 CGR (Rec: 08/26/22 13:25 CGR [id number]) OT Gross Range of Motion Upper Extremity Range of Motion Assessment Within Functional Limits OT Strength Upper Extremity Strength Assessment Within Functional Limits Comments Strength Comments grossly 4/5 OT- Coordination Assessment Upper Extremity Finger to Nose Test Within Functional Limits Finger Tapping Test Within Functional Limits OT-Muscle Tone Assessment Muscle Tone WNL Yes OT Sensation Assessment Edema Edema Present Edema Comments Noted moderate swelling to the RUE distal to the sx site. M9 OT- IP Assessment and Plan Start: 08/26/22 13:09 Freq: Status: Active Protocol: Document 08/26/22 13:09 CGR (Rec: 08/26/22 13:25 CGR [id number]) OT Summary Assessment and Plan Potential Rehabilitation Potential Excellent Analytic Complexity at Evaluation Low Summary Progress Towards Goals Goals Met Assessment Summary Pt is a low complexity evaluation s/p admit for infection to the R forearm after a dog bite. Pt underwent an I&D to the area. Pt is IND in her mobility in her room and ADLs. Pt educated on UE therex for gentle ROM to the RUE s/p i&D and provided with handout. Pt performs all exercises with minimal verbal cues. Pt returned to bed at end of session and left sitting up in bed. Call button within reach and all needs at time met. No further OT needs . OK for discharge home. Frequency of Treatment Frequency Of Treatment Discharge Discharge Recommendations OT Discharge Recommendations Home Transportation Needs at Discharge Private Vehicle
--- NOTE | 2022-08-26 15:19 | PM.DS.1 ---
History of Present Illness History of Present Illness Date Patient Seen: 08/26/22 Chief complaint: Dog bite Narrative: Patient feeling better and eager to go home. Has less pain swelling and redness of the right upper extremity. Discharge Providers Provider Date of admission: 08/25/22 12:59 Discharge Date: 08/26/22 Primary care physician: Lillie Mchugh MD Consults: 08/23/22 21:51 Consult to Occupational Therapy Evaluate & Treat Comment: Physician Instructions: Evaluate and treat Consult to Physical Therapy Evaluate & Treat Comment: Physician Instructions: Evaluate and Treat 08/23/22 21:52 Consult to Physician Routine Comment: Consulting Provider: Artemio Quintero Reason for consultation: Dog bite/cellulitis rtUE Has provider been notified: Yes 08/25/22 09:42 Consult to Discharge Planning Routine Comment: Consult to Physical Therapy Evaluate & Treat Comment: Physician Instructions: Evaluate and Treat Discharge provider: Jia Appiah MD Summary Hospital Course Discharge Diagnosis: Dog bite with wound right forearm Cellulitis right forearm Abscess right forearm Perforated abscess right forearm Elevated blood pressure Hyperlipidemia Hypothyroidism Depression GERD Leukocytosis Negative blood cultures Negative wound cultures Elevated C-reactive protein Elevated ESR Normal procalcitonin Past medical history/comorbidities: History of hip surgery Migraine headache Hospital Course: Dulce Arreola 76-year-old female with a history of hypertension, GERD, depression, hypothyroidism, hyperlipidemia, and migraines presented to the ED for a dog bite 6 days prior with increased redness swelling and pain to the right forearm, patient's tetanus was currently up-to-date.? Dr. Quintero, was consulted consulted reviewing imaging in ED. ?On admit patient denied chest pain, shortness in breath, headache, changes in vision, difficulty swallowing, speech impairment, weakness, numbness, tingling, difficulty with ambulation, recent falls, head injury, LOC, fever, body aches, chills, cough, recent exposure to illness, abdominal pain, nausea, vomiting, urinary incontinence/retention, dysuria, frequency, urgency, hematuria, bowel changes, constipation, incontinence, melena, rashes, recent changes to medication, illness, or trauma. White blood count was elevated as was CRP and ESR. Blood cultures remain negative. Wound cultures remained negative. Patient had been put on Zosyn intravenous antibiotics. The right forearm area of induration formed an abscess which perforated. Day following patient was taken to the operating room by Dr. Quintero for debridement. Patient was discharged on a course of Augmentin 875/125 antibiotics. Status at Discharge Cognitive/behavioral status at discharge: at baseline, oriented Functional status at discharge: independent ambulation Overall status at discharge: patient is back to baseline Time Spent with Patient Time spent: Less than 30 minutes Exam Vital Signs (past 8 hours): - 08/26/22 08:00 08/26/22 12:00 Temperature 97.1 F L 97.8 F Pulse Rate 71 72 Respiratory Rate 17 17 Blood Pressure 128/63 129/54 L Pulse Oximetry 98 95 Oxygen Flow Rate 0 0 Oxygen Delivery Method Room Air Oxygen Flow Rate 0 Narrative Exam Narrative: General:? Patient is a well-developed, well-nourished in no distress at this time. HEENT:? Pupils equal and reactive to light extraocular movements normal.? Trachea is midline.? Head is normocephalic. Respiratory:? Chest is clear to auscultation.? No wheezes or crackles. Cardio:? regular rate and rhythm with no extra sounds or murmurs Abdomen:? Soft nontender, negative for organomegaly, or masses.? Bowel sounds normal nontender. Musculoskeletal:? Right forearm is dressed post draining of the right forearm abscess and surgical debridement.? Dereased erythema in the skin surrounding the open wound.? Less swelling of the right hand. Neuro:? Normal sensation of right hand. Psych:? Patient has a well-kept appearance, appropriate affect, mental status attitude thought context and judgment are appropriate for age. Objective Labs 08/26/22 05:50 08/25/22 06:00 Labs: Laboratory Results - last 24 hr 08/26/22 08/26/22 05:50 05:50 WBC 9.4 RBC 3.29 L Hgb 10.2 L Hct 30.2 L MCV 91.8 MCH 31.1 MCHC 33.9 RDW 12.5 Plt Count 304 Neut % (Auto) 74.5 Lymph % (Auto) 15.7 L [place] % (Auto) 9.1 Eos % (Auto) 0.2 L Baso % (Auto) 0.5 Neut # (Auto) 7000 Lymph # (Auto) 1500 [place] # (Auto) 800 Eos # (Auto) 0 Baso # (Auto) 0 C-Reactive Protein 15.1 H [facility] Medical History Depression GE reflux Hypercholesterolemia Hypothyroidism Surgical History History of hip surgery Family History Mother Cancer Father Glaucoma Social History household members: none Smoking Status: Never smoker Discharge Plan Discharge Plan Patient Disposition: Home Provider Discharge Comment: Patient to follow-up with her primary care physician this week. Obtain antibiotics from pharmacy today. Have her primary care physician follow-up with a culture taken of the wound which has not been finalized as of yet to ensure appropriate antibiotic coverage. Discharge orders & Medications Prescriptions: New hydrocodone-acetaminophen 5-325 mg Tablet 1 tab PO Q4H PRN (Reason: Pain, Moderate (4-10) Qty: 10 0RF amoxicillin-pot clavulanate 875-125 mg Tablet 1 tab PO BID Qty: 14 0RF Continued vitamin B complex Tablet Extended Release 1 tab PO DAILY triazolam 0.25 mg Tablet 0.25 mg PO PRN PRN (Reason: Migraine Headache) levothyroxine 88 mcg Tablet 75 mcg PO DAILY omeprazole 10 mg Capsule,Delayed Release(Dr/Ec) 10 mg PO DAILY triamcinolone acetonide 0.025 % Cream 1 applic TOPICAL BID calcitonin (salmon) 200 unit/actuation [place],Non-Aerosol 1 spray INTRANASAL (ALT) DAILY sertraline 25 mg Tablet 25 mg PO DAILY cholecalciferol (vitamin D3) [Vitamin D3] 1,000 unit Capsule 1,000 unit PO DAILY Zyrtec 10 mg Capsule 10 mg PO DAILY magnesium oxide 400 mg magnesium Tablet 400 mg PO BID coQ10 (ubiquinol) 1 tab PO DAILY aspirin 81 mg Tablet 81 mg PO DAILY rosuvastatin 10 mg tablet 10 mg PO BEDTIME Follow up/Referrals: Artemio Quintero MD [Physician] - 1 Day (Follow up with orthopedics in 2-3 days. Call office for appointment. ) Lillei Mchugh MD [Primary Care Provider] - Visit Report/Discharge Packet Instructions: DI for Prescription Opioid Use, DI for Incision and Drainage of a Joint, DI for Incision and Drainage, [facility]: Wound Care Stand Alone Forms: Patient Portal/API, Stroke Signs & Symptoms Discharge Data Primary Care Provider: Lillie Mchugh Discharges patient from system. Discharge Date/Time: 08/26/22 14:53
== END 2022-08-26 14:53 | disposition home or self-care (01) | DRG 580 ==
LOC: ED 19:44 → AC 20:01
PROVIDERS: Neuromusculoskeletal Medicine, Sports Medicine; Orthopaedic Surgery; Admitting Provider Nurse Practitioner Family; Emergency Provider Emergency Medicine; PCP Internal Medicine; Visit Provider Nurse Practitioner Family
PROC: 0KD90ZZ Extraction of Right Lower Arm and Wrist Muscle, Open Approach (ICD-10-PCS; principal; 2022-08-25 09:30)
DX: L03.115 Cellulitis of right lower limb (principal); I96 Gangrene, not elsewhere classified; L02.413 Cutaneous abscess of right upper limb; E78.5 Hyperlipidemia, unspecified; E03.9 Hypothyroidism, unspecified; F32.A Depression, unspecified; K21.9 Gastro-esophageal reflux disease without esophagitis; R03.0 Elevated blood-pressure reading, without diagnosis of hypertension; W54.0XXA Bitten by dog, initial encounter; Z66 Do not resuscitate; Z20.822 Contact with and (suspected) exposure to COVID-19
CPT/HCPCS: 36415; 71046; 73201; 80048; 80053; 81001; 83605; 83690; 84145; 84443; 85025; 85610; 85651; 85730; 86140; 87040; 87070; 87075; 87077; 87185; 87205; 87635; 96365; 96366; 97165; 99284; C9803; G0378; J0171; J1100; J1650; J2405; J2543; J2704; J3010; Q9967

== ENCOUNTER → 2022-09-09 13:01 | Outpatient (CLI) | payer MEDICARE, OTHER, SELFPAY ==
[2022-08-23 23:40] VITALS: BMI 25.7
== END ==
PROVIDERS: PCP Internal Medicine; Referring Provider Orthopaedic Surgery; Visit Provider Surgery
DX: T81.89XA Other complications of procedures, not elsewhere classified, initial encounter (principal); S41.101A Unspecified open wound of right upper arm, initial encounter
CPT/HCPCS: 11042; 17250; 99203; 99213

== ENCOUNTER → 2022-09-16 14:10 | Outpatient (CLI) | payer MEDICARE, OTHER, SELFPAY ==
[2022-08-23 23:40] VITALS: BMI 25.7
== END ==
PROVIDERS: PCP Internal Medicine; Referring Provider Internal Medicine; Visit Provider Surgery
DX: S51.801A Unspecified open wound of right forearm, initial encounter (principal); T81.31XA Disruption of external operation (surgical) wound, not elsewhere classified, initial encounter; M79.601 Pain in right arm
CPT/HCPCS: 17250; 99213

== ENCOUNTER → 2022-09-19 15:24 | Outpatient (CLI) | payer MEDICARE, OTHER, SELFPAY ==
[2022-08-23 23:40] VITALS: BMI 25.7
--- NOTE | 2022-09-19 15:25 | DI.MG.S_ITS ---
BILATERAL DIGITAL SCREENING MAMMOGRAM 3D/2D WITH CAD: 09/19/2022 CLINICAL: Routine screening. Family history of breast cancer. Comparison is made to exams dated: 08/08/2021 mammogram, 06/28/2020 mammogram, and 06/22/2019 mammogram - [facility]. Both breasts are heterogeneously dense, which may obscure small masses (category c / 51-75% glandular tissue). Current study was also evaluated with a Computer Aided Detection (CAD) system. No significant masses, calcifications, or other findings are seen in either breast. There has been no significant interval change. IMPRESSION: NEGATIVE There is no mammographic evidence of malignancy. A 1 year screening mammogram is recommended. Based on the Tyrer Cuzick model (a risk assessment model) the patient's lifetime risk is 12.2% and her 10 year risk is 0.0%. According to the ACR, ACS, and NCCN guidelines, an annual breast MRI exam along with mammogram is recommended if the patient's lifetime risk is 20% or greater. This exam was interpreted at Station ID: [id number]. NOTE: For mammograms, a report in lay terms will be sent to the patient. Approximately 15% of breast malignancies will not be visualized mammographically. In the management of a palpable breast mass, a negative mammogram must not discourage biopsy of a clinically suspicious lesion. Electronically Signed By: Carlos vargas/kay:09/20/2022 11:23:28 letter sent: Normal Exam ACR BI-RADS Category 1: Negative [id number]
== END ==
PROVIDERS: PCP Internal Medicine; Referring Provider Internal Medicine; Visit Provider Internal Medicine
DX: Z12.31 Encounter for screening mammogram for malignant neoplasm of breast (principal); Z80.3 Family history of malignant neoplasm of breast
CPT/HCPCS: 77063; 77067

== ENCOUNTER → 2022-09-23 14:08 | Outpatient (CLI) | payer MEDICARE, OTHER, SELFPAY | PROVIDERS: PCP Internal Medicine; Referring Provider Orthopaedic Surgery; Visit Provider Surgery | DX: T81.89XA Other complications of procedures, not elsewhere classified, initial encounter (principal); S51.801A Unspecified open wound of right forearm, initial encounter | CPT/HCPCS: 17250; 99213 ==

== ENCOUNTER → 2022-10-01 14:26 | Outpatient (CLI) | payer MEDICARE, OTHER, SELFPAY | PROVIDERS: PCP Internal Medicine; Referring Provider Orthopaedic Surgery; Visit Provider Surgery | DX: S51.801A Unspecified open wound of right forearm, initial encounter (principal); T81.89XA Other complications of procedures, not elsewhere classified, initial encounter | CPT/HCPCS: 99212; 99213 ==

== ENCOUNTER → 2022-10-08 14:54 | Outpatient (CLI) | payer MEDICARE, OTHER, SELFPAY | PROVIDERS: PCP Internal Medicine; Referring Provider Orthopaedic Surgery; Visit Provider Surgery | DX: S41.101D Unspecified open wound of right upper arm, subsequent encounter (principal) | CPT/HCPCS: 99212; 99213 ==

== ENCOUNTER → 2023-09-22 12:43 | Outpatient (CLI) | payer MEDICARE, OTHER, SELFPAY ==
--- NOTE | 2023-09-22 12:45 | DI.MG.S_ITS ---
BILATERAL DIGITAL SCREENING MAMMOGRAM 3D/2D WITH CAD: 09/22/2023 CLINICAL: Routine screening. Family history of breast cancer. Comparison is made to exams dated: 09/19/2022 mammogram, 08/08/2021 mammogram, 06/28/2020 mammogram, and 06/22/2019 mammogram - [facility]. Both breasts are heterogeneously dense, which may obscure small masses (category c / 51-75% glandular tissue). Current study was also evaluated with a Computer Aided Detection (CAD) system. No significant masses, calcifications, or other findings are seen in either breast. Bilateral scar markers. There has been no significant interval change. IMPRESSION: NEGATIVE There is no mammographic evidence of malignancy. A 1 year screening mammogram is recommended. Based on the Tyrer Cuzick model (a risk assessment model) the patient's lifetime risk is 11.1% and her 10 year risk is 0.0%. According to the ACR, ACS, and NCCN guidelines, an annual breast MRI exam along with mammogram is recommended if the patient's lifetime risk is 20% or greater. This exam was interpreted at Station ID: [id number]. NOTE: For mammograms, a report in lay terms will be sent to the patient. Approximately 15% of breast malignancies will not be visualized mammographically. In the management of a palpable breast mass, a negative mammogram must not discourage biopsy of a clinically suspicious lesion. Electronically Signed By: Vishnu Morales M.D. [facility] [place]/:09/22/2023 18:35:51 letter sent: Normal Exam ACR BI-RADS Category 1: Negative [id number]
== END ==
LOC: MAMMO 12:44
PROVIDERS: PCP Internal Medicine; Referring Provider Internal Medicine; Visit Provider Internal Medicine
DX: Z12.31 Encounter for screening mammogram for malignant neoplasm of breast (principal); Z80.3 Family history of malignant neoplasm of breast; R92.333 Mammographic heterogeneous density, bilateral breasts
CPT/HCPCS: 77063; 77067

== ENCOUNTER → 2024-10-05 13:54 | Outpatient (CLI) | payer MEDICARE, OTHER, SELFPAY ==
--- NOTE | 2024-10-05 13:56 | DI.MG.S_ITS ---
MM screening mammo BI: 10/05/2024. BI-RADS: 1 CLINICAL: 79-year old female for bilateral screening mammogram. Tyrer-Cuzick lifetime risk of 6.6%. Current reported family history of breast cancer: mother. The patient had a prior left breast biopsy. PRIOR EXAMS 09/22/2023, 09/19/2022, 08/08/2021, 06/28/2020, 06/22/2019, 06/18/2018, 06/17/2017, 05/20/2016, 05/12/2015, 04/24/2015. MAMMOGRAPHY TECHNIQUE: 2D and 3D (tomosynthesis) digital mammographic views obtained, with additional images as needed for full coverage. Current study was also evaluated with a Computer Aided Detection (CAD) system. DENSITY B. There are scattered areas of fibroglandular density. MAMMOGRAPHY FINDINGS Bilateral: No suspicious mass, asymmetry, microcalcification, or other abnormality seen. No significant change from comparison. IMPRESSION: * No evidence of malignancy. RECOMMENDATIONS Bilateral * Annual screening mammography. OVERALL ASSESSMENT CATEGORY BI-RADS-1: Negative. The [employer] recommends annual screening mammography beginning at age 40 for women with average risk of breast cancer. ELECTRONICALLY SIGNED: Melida Lees M.D. on 10/05/2024 at 05:45:22 PM PT Interpreting Station ID: [id number]
== END ==
PROVIDERS: PCP Internal Medicine; Referring Provider Internal Medicine; Visit Provider Internal Medicine
DX: Z12.31 Encounter for screening mammogram for malignant neoplasm of breast (principal); Z80.3 Family history of malignant neoplasm of breast
CPT/HCPCS: 77063; 77067

== ENCOUNTER 2024-11-10 18:34 | Emergency (ER) | payer MEDICARE, OTHER, SELFPAY ==
[2024-11-10] VITALS (17 sets, daily range): BP systolic 114–139; BP diastolic 61–83; PULSE 81–108; RESP 13–34; TEMP 36.5–37; O2SAT 83–99; BMI 26.6
--- NOTE | 2024-11-10 18:43 | EKG_ITS ---
[address] [address] Test Date: 2024-11-10 Pat Name: Dulce Arreola Department: Room: Gender: Female Library Media Specialist: EDELMIRA : 1945 Requested By: Order Number: [id number] Reading MD: Kash Joel MD Measurements Intervals [place] Rate: 103 P: 25 NV: 160 QRS: -26 QRSD: 156 T: 115 QT: 406 QTc: 531 Interpretive Statements Sinus tachycardia Left bundle branch block, new since 2011 tracing Electronically Signed On 11-11-2024 10:49:42 PDT by Kash Joel MD
--- NOTE | 2024-11-10 18:46 | DI.RAD.S_ITS ---
PROCEDURE: XR CHEST 1V INDICATIONS: dyspnea TECHNIQUE: One view of the chest was acquired. COMPARISON: [facility], CR, XR CHEST 2V, 08/24/2022, 9:09. FINDINGS: Surgical changes and devices: None. Lungs and pleura: Mild opacity at the right costophrenic angle. Lungs otherwise appear clear. Mediastinum: Mediastinal contours appear normal. Heart size is normal. Bones and chest wall: No suspicious bony lesions. Overlying soft tissues appear unremarkable. IMPRESSION: Mild opacity at the right costophrenic angle, may represent atelectasis or infection. Recommend follow-up imaging after treatment to ensure resolution. Dictated by: Josué Landrum M.D. on 11/10/2024 at 19:16 Approved by: Josué Landrum M.D. on 11/10/2024 at 19:17
--- NOTE | 2024-11-10 18:57 | ED.GENADULT ---
HPI - General Adult General Chief complaint: Shortness of Breath/Dyspnea Stated complaint: SOB, Fatigue, Chest Pain Time Seen by Provider: 11/10/24 18:36 Source: patient Mode of arrival: Wheelchair History of Present Illness HPI narrative: 79-year-old woman previous stroke, on an aspirin daily, hypothyroidism, hyperlipidemia, depression, seasonal allergies presents with 5 days of increasing dyspnea, fatigue and a discomfort that she is finding difficulty describing in her central chest, finally settles on throbbing sensation. Has not felt any palpitations, not having orthopnea or lower extremity edema. Today she was walking into the emergency department she felt quite warm and somewhat sweaty. She is able to speak in full sentences and is not in significant respiratory distress at this time Related Data Home Medications ?Medication ?Instructions ?Recorded ?Confirmed calcitonin (salmon) 200 1 spray intranasal (ALT) DAILY 06/24/18 08/24/22 unit/actuation nasal spray cetirizine 10 mg capsule (Zyrtec) 10 mg PO DAILY 06/24/18 08/24/22 cholecalciferol (vitamin D3) 25 1,000 unit PO DAILY 06/24/18 08/24/22 mcg (1,000 unit) capsule (Vitamin D3) coQ10 (ubiquinol) 1 tab PO DAILY 06/24/18 08/26/22 magnesium oxide 400 mg PO BID 06/24/18 08/24/22 omeprazole 10 mg capsule,delayed 10 mg PO DAILY 06/24/18 08/24/22 release sertraline 25 mg tablet 25 mg PO DAILY 06/24/18 08/24/22 triamcinolone acetonide 0.025 % 1 applic topical BID 06/24/18 08/26/22 topical cream triazolam 0.25 mg tablet 0.25 mg PO PRN PRN Migraine 06/24/18 08/24/22 Headache vitamin B complex 1 tab PO DAILY 06/24/18 08/26/22 aspirin 81 mg tablet 81 mg PO DAILY 08/24/22 08/24/22 rosuvastatin 10 mg tablet 10 mg PO BEDTIME 08/24/22 08/24/22 cyclosporine 0.05 % eye drops in a 1 drp EYE-BOTH BID 11/10/24 11/10/24 dropperette ketoconazole 2 % shampoo topical Q2W 11/10/24 11/10/24 levothyroxine 75 mcg tablet 75 mcg PO DAILY 11/10/24 11/10/24 Previous Rx's ?Medication ?Instructions ?Recorded hydrocodone 5 mg-acetaminophen 325 1 tab PO Q4H PRN Pain, Moderate 08/26/ mg tablet (4-10 #10 tabs furosemide 20 mg tablet 20 mg PO DAILY #30 tabs 11/10/24 potassium chloride 10 mEq 10 meq PO DAILY #30 caps 11/10/24 capsule,extended release Allergies Allergy/AdvReac Type Severity Reaction Status Date / Time meperidine (From DEMEROL) Allergy Unknown Hallucinati Verified 11/10/24 18:47 ons Review of Systems Review of Systems Narrative: Pertinent positive and negative findings as per HPI Patient History Medical History (Updated 11/10/24 @ 22:48 by Anh Ramon MD) Dissection, vertebral artery GE reflux Hypercholesterolemia Hypothyroidism Depression Surgical History History of hip surgery Family History Mother Cancer Father Glaucoma Social History household members: none Smoking Status: Never smoker Smoking Status: Never smoker alcohol intake frequency: holidays/special occasions only Exam Initial Vital Signs Initial Vital Signs: Vital Signs Temperature 98.6 F 11/10/24 18:35 Pulse Rate 99 H 11/10/24 18:35 Respiratory Rate 22 11/10/24 18:35 Blood Pressure 135/83 11/10/24 18:35 Pulse Oximetry 98 11/10/24 18:35 Oxygen Delivery Method Room Air 11/10/24 18:35 General: Slightly pale but in no acute distress. Able to give a complete and coherent history. HEENT: Moist mucous membranes, normal sclera with reactive pupils, Neck: No JVD, no cervical adenopathy Respiratory: Lungs with bibasilar crackles, no rhonchi, no wheezing, no accessory muscle use. Able to speak in full sentences with Full and symmetrical air movement Cardiac: Sinus tachycardia without murmurs Abdomen: Soft, nontender, no rebound or guarding, no flank pain Skin: Warm and dry, no rashes Neurologic: Grossly neurologically intact with no obvious asymmetries or abnormalities Extremities: No trauma, well perfused, no lower extremity edema Psych: Cooperative, appropriate insight and affect Course Orders Ordered: ED Orders 11/10/24 18:46 XR chest 1V Stat EKG-12 Lead Stat 11/10/24 18:55 Complete Blood Count AUTO DIFF Stat Comprehensive Metabolic Panel Stat D Dimer Stat Lipase Stat NT-proBNP (BNP-Adult 18+) Stat Troponin I Stat 11/10/24 20:12 Urinalysis and Microscopic Stat 11/10/24 20:44 EKG-12 Lead Stat 11/10/24 20:57 Trop I [Troponin I] Stat 11/10/24 21:18 CT angio chest PE protocol Stat Discontinued Medications Furosemide (Furosemide 40 Mg/4 Ml Vial) 20 mg IV NOW ONE Stop: 11/10/24 20:57 Last Admin: 11/10/24 21:00 Dose: 20 mg Documented By: ANDREW Vital Signs Vital signs: Vital Signs - 8 hr 11/10/24 18:35 11/10/24 18:57 11/10/24 19:00 Temperature 98.6 F Pulse Rate 99 H 95 H 97 H Respiratory Rate 22 34 H 27 H Blood Pressure 135/83 Pulse Oximetry 98 96 95 Oxygen Delivery Method Room Air 11/10/24 19:16 11/10/24 19:16 11/10/24 19:30 Temperature Pulse Rate 93 H Respiratory Rate 32 H Blood Pressure 129/70 114/62 Pulse Oximetry 97 Oxygen Delivery Method 11/10/24 19:30 11/10/24 20:00 11/10/24 20:00 Temperature Pulse Rate 87 87 Respiratory Rate 15 18 Blood Pressure 120/63 Pulse Oximetry 96 94 Oxygen Delivery Method 11/10/24 20:13 11/10/24 20:13 11/10/24 20:30 Temperature Pulse Rate 108 H 92 H Respiratory Rate 30 H 22 Blood Pressure 131/64 Pulse Oximetry 90 L 95 Oxygen Delivery Method 11/10/24 20:31 11/10/24 20:31 Temperature Pulse Rate 92 H Respiratory Rate 20 Blood Pressure 132/61 Pulse Oximetry 95 Oxygen Delivery Method Medical Decision Making Lab Data 11/10/24 18:55 11/10/24 18:55 Labs: Lab Results 11/10/24 11/10/24 11/10/24 Range/Units 18:55 20:12 20:57 WBC 9.2 (4.5-11.0) X10^3/uL RBC 3.93 L (4.0-5.2) X10^6/uL Hgb 12.4 (12.0-16.0) g/dL Hct 37.2 (36-46) % MCV 94.6 (80-100) fL MCH 31.6 (26-34) PG MCHC 33.4 (30-36) % RDW 13.4 (11.6-14.8) % Plt Count 235 (150-400) X10^3/uL Neut % (Auto) 62.9 (50-75) % Lymph % (Auto) 26.1 (25-40) % [place] % (Auto) 5.2 (3-14) % Eos % (Auto) 4.7 H (2-4) % Baso % (Auto) 1.1 (0-2) % Neut # (Auto) 5800 (7132-0880) /uL Lymph # (Auto) 2400 (8329-7196) /uL Forest # (Auto) 500 (0-900) /uL Eos # (Auto) 400 (0-450) /uL Baso # (Auto) 100 (0-100) /uL D-Dimer 800 H (<500) ng/ml Sodium 140 (137-145) mmol/L Potassium 4.5 (3.4-5.1) mmol/L Chloride 104 (98-107) mmol/L Carbon Dioxide 25 (22-32) mmol/L BUN 24 H (7-17) mg/dL Creatinine 0.95 (0.52-1.04) mg/dL Estimated GFR > 60 (>60) mL/min BUN/Creatinine Ratio 25.3 H (6-22) Glucose 99 (70-99) mg/dL Calcium 9.5 (8.4-10.2) mg/dL Total Bilirubin 0.5 (0.2-1.3) mg/dL AST 34 (14-36) IU/L ALT 19 (<35) IU/L Alkaline Phosphatase 69 (38-126) U/L Troponin I < 0.012 0.015 (0.01-0.034) ng/mL NT-Pro-B Natriuret Pep 5610 H (<450) pg/mL Total Protein 8.0 (6.3-8.2) g/dL Albumin 4.7 (3.5-5.0) g/dL Globulin 3.3 (1.7-4.1) g/dL Albumin/Globulin Ratio 1.4 (1.0-2.8) Lipase 79 (23-300) U/L Urine Color Yellow Urine Appearance Clear Urine pH 6.5 (4.5-8.0) Ur Specific [place] 1.010 (1.000-1.035) Urine Protein Negative (Negative) Urine Glucose (UA) Negative (Negative) g/dL Urine Ketones Negative (NEGATIVE) Urine Occult Blood Negative (Negative) Urine Nitrate Negative (Negative) Urine Bilirubin Negative (NEGATIVE) Urine Urobilinogen 0.2 (0.2) E.U./dL Ur Leukocyte Esterase Negative (NEGATIVE) Urine RBC None seen (0-5/HPF) Urine WBC None seen (0-5/HPF) Ur Squamous Epith Cells None seen (0-5/HPF) Urine Bacteria None seen (None) Ur Culture Indicated? Cult not indicated Vol Urine Centrifuged 10ml (spun) MDM Narrative Medical decision making narrative: CC: Increasing dyspnea for 5 days Complicating co-morbidities: Prior stroke, hyperlipidemia, hypothyroidism. No prior history of cardiac disease or congestive heart failure Data collected from: patient Medical records reviewed: Discharge summary from August of 2022 after admission for cellulitis in the right upper extremity secondary to dog bite reviewed Differential considered: Heart failure, NSTEMI, viral syndrome, PE Exam documented above, pertinent findings include: Aside from being slightly pale and having bibasilar crackles her exam is remarkably reassuring Lab Test results independently reviewed as above. Pertinent findings: CBC is unremarkable, no anemia nor leukocytosis Chemistries are notable for appropriate renal function Initial and repeat troponin are undetectable BNP is elevated at 5610 Urinalysis is unremarkable D-dimer is slightly elevated at 800 which is even high when correcting for age. Given acute onset of symptoms, no reason for heart failure no previous diagnosis of heart failure PE study will be ordered Independently reviewed EKG: EKG shows sinus tach at 103, bundle branch bloc, no priors for comparison Imaging studies independently reviewed: Chest x-ray suggests mild opacity of the right costophrenic angle, she does not have obvious cardiomegaly or volume overload CT scan does not show evidence of pulmonary embolism, no significant cardiomegaly, suggestion of pericardial effusion she does have mild bilateral pleural effusions Treatments: 20 mg of Lasix with greater than a L cc of urine output Re-evaluations: Discussion: 79-year-old woman with 5 days of increasing dyspnea. Elevated BNP, bilateral pleural effusions without evidence of acute coronary syndrome, infection, pulmonary embolism, significant anemia, renal failure, liver failure or alternate explanation for her symptoms the most likely explanation is congestive heart failure. At this point she is feeling slightly better with the urine output, she is not hypoxic, her initial tachycardia has improved. She does not meet any criteria for needing hospitalization. I am going to have her start furosemide plus potassium and follow up with her outpatient provider. The next step in her workup will likely be an outpatient echocardiogram to see if a more complete explanation for why she all of a sudden has symptoms of congestive heart failure can be elucidated. There was no evidence of pericarditis, myocarditis or alternate explanations that would require further workup or hospitalization. Discharge Plan Departure Patient Disposition: Home Clinical Impression: Congestive heart failure Qualifiers: Heart failure type: unspecified Heart failure chronicity: acute Qualified Code(s): I50.9 - Heart failure, unspecified Instructions: DI for Heart Failure Activity Restrictions/Additional Instructions: Thank you for coming in today There is no evidence of heart attack, atrial fibrillation, infection, pericardial effusion, kidney failure, liver failure, or blood clots in your lungs. There is evidence of mild congestive heart failure. It does appear that you have some fluid that is backing up into your lungs that is causing your shortness of breath. Your very healthy kidneys have had a very brisk response to your 1st dose of furosemide/Lasix. I suspect that you have already had more than a L of fluid coming out. Your heart rate, blood pressure and oxygen saturations were all responding nicely to this amount of fluid being voided I am going to give you a prescription for furosemide plus potassium. Furosemide pulls potassium out with it. They will be 30 pills of each, what I would like you to do is take 1 Lasix and 1 potassium every morning for the next 5 days, you can stop on November 17. Is prescription has been electronically transmitted to [facility] [facility] to corn picker tomorrow. I would also like you to weigh yourself 1st thing tomorrow morning and white right down your daily weights. This can be very sensitive way to tell how much water weight you are losing and how much you may be gaining. Please take these readings in with you when you see Dr. Mchugh. You need to contact Dr. Mchugh's office tomorrow to schedule a follow up appointment. She likely will want to schedule an outpatient echocardiogram, an ultrasound picture of your heart, to get a better idea for how well your heart is functioning. If you find that you are getting worse or develop any new symptoms, please feel free to return to the emergency department for further evaluation. Prescriptions: New furosemide 20 mg tablet 20 mg PO DAILY Qty: 30 0RF potassium chloride 10 mEq capsule, extended release 10 meq PO DAILY Qty: 30 0RF No Action ketoconazole 2 % shampoo topical Q2W levothyroxine 75 mcg tablet 75 mcg PO DAILY cyclosporine 0.05 % dropperette 1 drp EYE-BOTH BID vitamin B complex Tablet Extended Release 1 tab PO DAILY triazolam 0.25 mg Tablet 0.25 mg PO PRN PRN (Reason: Migraine Headache) omeprazole 10 mg Capsule,Delayed Release(Dr/Ec) 10 mg PO DAILY triamcinolone acetonide 0.025 % Cream 1 applic TOPICAL BID calcitonin (salmon) 200 unit/actuation [place],Non-Aerosol 1 spray INTRANASAL (ALT) DAILY sertraline 25 mg Tablet 25 mg PO DAILY cholecalciferol (vitamin D3) [Vitamin D3] 1,000 unit Capsule 1,000 unit PO DAILY Zyrtec 10 mg Capsule 10 mg PO DAILY magnesium oxide 400 mg magnesium Tablet 400 mg PO BID coQ10 (ubiquinol) 1 tab PO DAILY aspirin 81 mg Tablet 81 mg PO DAILY rosuvastatin 10 mg tablet 10 mg PO BEDTIME hydrocodone-acetaminophen 5-325 mg Tablet 1 tab PO Q4H PRN (Reason: Pain, Moderate (4-10) Qty: 10 0RF Referrals: Lillie Mchugh MD [Primary Care Provider, Internal Medicine] Stand Alone Forms: Patient Portal/API
[2024-11-10 19:09] LABS: Add Manual Diff / Slide Review NO; Hematocrit 37.2 % (36-46); Hemoglobin 12.4 g/dL (12.0-16.0); Lymphocytes Absolute Auto 2400 /uL (1100-4500); Mean Corpuscular HGB Conc 33.4 % (30-36); Mean Corpuscular Hemoglobin 31.6 PG (26-34); Mean Corpuscular Volume 94.6 fL (80-100); Platelet Count 235 X10^3/uL (150-400)
[2024-11-10 19:21] LABS: Alanine Aminotransferase 19 IU/L (<35); Albumin 4.7 g/dL (3.5-5.0); Albumin Globulin Ratio 1.4 (1.0-2.8); Alkaline Phosphatase 69 U/L (38-126); Blood Urea Nitrogen 24 mg/dL (7-17); Calcium 9.5 mg/dL (8.4-10.2); Carbon Dioxide 25 mmol/L (22-32); Chloride 104 mmol/L (98-107); Estimated Glomerular Filt Rate > 60 mL/min (>60); Globulin 3.3 g/dL (1.7-4.1); Glucose 99 mg/dL (70-99); HEMOLYSIS < 15 (0-50); Lipase 79 U/L (23-300); Potassium 4.5 mmol/L (3.4-5.1); Sodium 140 mmol/L (137-145); Total Protein 8.0 g/dL (6.3-8.2)
[2024-11-10 19:33] LABS: NT-proBNP (BNP-Adult 18+) 5610 pg/mL (<450); Troponin I < 0.012 ng/mL (0.01-0.034)
[2024-11-10 20:44] LABS: Appearance Urine UA CLEAR; Bilirubin Urine UA NEGATIVE (NEGATIVE); Color Urine UA YELLOW; Glucose Urine UA NEGATIVE (Negative); Ketones Urine UA NEGATIVE (NEGATIVE); Leukocyte Esterase Urine UA NEGATIVE (NEGATIVE); Nitrite Urine UA NEGATIVE (Negative); Occult Blood Urine UA NEGATIVE (Negative); Protein Urine UA NEGATIVE (Negative); Specific Gravity Urine UA 1.010 (1.000-1.035); Urobilinogen Urine UA 0.2 E.U./dL (0.2)
[2024-11-10 20:45] LABS: pH Urine UA 6.5 (4.5-8.0)
[2024-11-10 20:47] LABS: Culture Indicated Urine Cult Not Indicated
--- NOTE | 2024-11-10 20:57 | EKG_ITS ---
[facility] [address] [place] [id number] Test Date: 2024-11-10 Pat Name: Dulce Arreola Department: [facility] Room: Gender: Female [employer]ning [employer] T[employer]: NAY : 1945 Requested By: Order Number: [id number] Reading MD: Kash Joel MD Measurements Intervals Bunch Rate: 94 P: 60 ID: [id number] QRS: -52 QRSD: 158 T: 87 QT: 454 QTc: 567 Interpretive Statements Normal sinus rhythm Left axis deviation Left bundle branch block NO SIGNIFICANT CHANGE FROM PRIOR TRACING Electronically Signed On 11-11-2024 10:49:52 PDT by Kash Joel MD
[2024-11-10] MEDS: FUROSEMIDE 40 MG/4 ML VIAL 20 MG IV (21:00)
--- NOTE | 2024-11-10 21:18 | DI.CT.S_ITS ---
PROCEDURE: CT ANGIO CHEST PE PROTOCOL INDICATIONS: elevated d dimer, dyspnea for 5 days TECHNIQUE: After the administration of intravenous contrast, 2 mm thick sections acquired from the pulmonary apices to the posterior costophrenic angles. 3-dimensional maximum intensity projection (MIP) coronal and sagittal reformats were then acquired through the thorax. For radiation dose reduction, the following was used: automated exposure control, adjustment of mA and/or kV according to patient size. COMPARISON: None. FINDINGS: Image quality: Diagnostic. Pulmonary arteries: Pulmonary arteries are normal in size, and demonstrate no intraluminal filling defects to suggest central pulmonary embolism. Lower Neck: No enlarged lymph nodes. Thyroid: No thyroid nodules which require sonographic follow up, per consensus guidelines. Axillae: No enlarged lymph nodes. Chest Wall: Unremarkable. Bones: Unremarkable. Lungs and Pleura: Mild bilateral effusions. Heart: Heart size is normal. No pericardial effusion. Thoracic Vessels: No aortic aneurysm. Mediastinum and Erin: No enlarged lymph nodes. Esophagus: No wall thickening. Large hiatal hernia. Upper Abdomen: Visualized upper abdomen solid organs and bowel loops appear normal. IMPRESSION: No pulmonary embolus. Mild bilateral effusions. Dictated by: Palma Urena M.D. on 11/10/2024 at 21:46 Approved by: Palma Urena M.D. on 11/10/2024 at 21:53
[2024-11-10 21:28] LABS: Troponin I 0.015 ng/mL (0.01-0.034)
== END 2024-11-10 23:12 | disposition home or self-care (01) ==
PROVIDERS: Emergency Provider Emergency Medicine; PCP Internal Medicine
DX: I50.9 Heart failure, unspecified (principal); R07.9 Chest pain, unspecified
CPT/HCPCS: 36415; 71045; 71275; 80053; 81001; 83690; 83880; 84484; 85025; 85379; 93005; 93010; 96374; 99284; J1938; Q9967

== ENCOUNTER → 2024-11-17 14:36 | Outpatient (CLI) | payer MEDICARE, OTHER, SELFPAY ==
--- NOTE | 2024-11-17 14:37 | DI.ECHO.S_ITS ---
[facility] : : [address] : : [place] : : [id number] : : Phone: [phone] Echocardiogram Report + + :Name: TESS SEXTON Study Date: 11/17/2024 Height: 64 in : :Hospital ReadingLocation: Weight: 155 lb : : Gender: Female BSA: 1.8 m2 : :: 1945 Age: 79 yrs BP: 121/74 mmHg: :Reason For Study: PULMONARY EDEMA : :Ordering Physician: ENDER, : :JAZ MAHMOOD Performed By: Morgan Pierre : :Referring: JAZ HANDLEY : + + Interpretation Summary The left ventricle is moderately dilated. The ejection fraction is estimated to be 10-15%. There is severe global hypokinesis of the left ventricle. The mid to distal inferior wall is akinetic. Cannot determine left atrial pressure and grade of diastolic dysfunction. The left atrium is severely dilated. The right ventricle is mildly dilated. Right ventricular systolic function is mild to moderately reduced. The right atrium is mildly dilated. There is severe mitral regurgitation. There is moderate tricuspid regurgitation. The right ventricular systolic pressure is estimated to be at least 59 mmHg based on an estimated right atrial pressure of 3 mm Hg. Procedure: A two-dimensional transthoracic echocardiogram with color flow and Doppler was performed. The study quality was technically good. There is no prior echocardiogram noted for this patient. The patient was in normal sinus rhythm during the exam. Left Ventricle: There is normal left ventricular wall thickness. The left ventricle is moderately dilated. There is no ventricular septal defect visualized. The ejection fraction is estimated to be 10-15%. There is severe global hypokinesis of the left ventricle. The mid to distal inferior wall is akinetic. Cannot determine left atrial pressure and grade of diastolic dysfunction. Right Ventricle: The right ventricle is mildly dilated. Right ventricular systolic function is mild to moderately reduced. Atria: The left atrium is severely dilated. The right atrium is mildly dilated. There is no Doppler evidence for an interatrial shunt. Mitral Valve: The mitral valve leaflets are mildly calcified. There is mild mitral annular calcification. There is severe mitral regurgitation. Aortic Valve: The aortic valve is trileaflet. The aortic valve opens well. The aortic valve is mildly calcified. There is no aortic valve stenosis. No aortic regurgitation is present. Tricuspid Valve: The tricuspid valve leaflets are thickened and/or calcified, but open well. There is moderate tricuspid regurgitation. The right ventricular systolic pressure is estimated to be at least 59 mmHg based on an estimated right atrial pressure of 3 mm Hg. Pulmonic Valve: The pulmonic valve leaflets are thin and pliable; valve motion is normal. There is trace pulmonic regurgitation. Great Vessels: The aortic root is normal size. The dimensions of the ascending aorta are normal. The pulmonary artery is normal size. The IVC is of normal diameter and collapses greater than 50% with a sniff. This suggests a low right atrial pressure of 3 mm Hg. Pericardium/ Pleura There is no pericardial effusion. There is no pleural effusion. MMode/2D Measurements & Calculations LVIDd: 6.0 cm LVOT diam: 1.7 cm LVIDs: 5.1 cm Ao root diam: 2.7 cm FS: 15.0 % asc Aorta Diam: 3.1 cm EPSS: 1.6 cm Ao Arch Diam (Prox Trans): 1.8 cm IVSd: 0.89 cm LVPWd: 0.86 cm LV francis. diameter/BSA (cm/m^2): 3.4 LV sys. diameter/BSA (cm/m^2): 2.9 LA A2 area: 24.9 cm2 RA long axis: 4.4 cm LA A4 area: 23.9 cm2 RA area: 16.1 cm2 LA length (vol): 5.8 cm RA vol: 49.8 ml LA vol: 86.6 ml RA : 28.4 ml/m2 LA vol index: 49.3 ml/m2 IVC diam: 1.9 cm RVD1 (basal): 3.9 cm RVD2 (mid): 2.9 cm TAPSE: 1.7 cm Doppler Measurements & Calculations Ao V2 max: 149.6 cm/sec LVOT Max Frank: 99.8 cm/sec Ao V2 mean: 101.0 cm/sec LV V1 max P.0 mmHg Ao max P.9 mmHg LV V1 VTI: 15.5 cm Ao mean P.5 mmHg ABIMAEL(I,D): 1.6 cm2 Ao V2 VTI: 23.1 cm ABIMAEL(V,D): 1.6 cm2 sev ratio: 0.67 ABIMAEL indexed to BSA (cm^2/m^2): 0.92 MV E max frank: 137.4 cm/sec TR max frank: 368.6 cm/sec MV A max frank: 126.2 cm/sec TR max P.7 mmHg MV E/A: 1.1 PA V2 max: 97.0 cm/sec Med Peak E' Frank: 9.6 cm/sec PA V2 mean: 61.9 cm/sec E/E' med: 14.3 PA mean P.8 mmHg Lat Peak E' Frank: 8.1 cm/sec PA pr(Accel): 60.2 mmHg E/E' lat: 17.0 E/e' average: 15.6 MV dec time: 0.12 sec MR ERO: 0.47 cm2 MR PISA: 7.1 cm2 SV(LVOT): 37.3 ml MR flow rate: 261.5 cm3/sec MR PISA radius: 1.1 cm Reading Physician:04:31 PM
== END ==
PROVIDERS: PCP Internal Medicine; Referring Provider Family Medicine; Visit Provider Family Medicine
DX: J81.0 Acute pulmonary edema (principal); I08.1 Rheumatic disorders of both mitral and tricuspid valves
CPT/HCPCS: 93306

== ENCOUNTER → 2024-11-23 13:00 | Outpatient (CLI) | payer MEDICARE, OTHER, SELFPAY ==
--- NOTE | 2024-11-23 13:03 | DI.US.S_ITS ---
PROCEDURE: US ABDOMEN LIMITED INDICATIONS: RIGHT UPPER QUADRANT PAIN TECHNIQUE: Real-time scanning was performed of the abdominal and retroperitoneal organs, with image documentation. COMPARISON: [facility], CT, CT ANGIO CHEST PE PROTOCOL, 11/10/2024, 21:23. FINDINGS: Liver: Liver is normal in size and homogeneous in echotexture. Gallbladder: No gallstones gallbladder is distended. No wall thickening. No pericholecystic edema. Negative sonographic Moore's sign. Biliary ducts: Intrahepatic bile ducts are non-dilated. Extrahepatic bile duct caliber measures 12.1 mm, tapering to 9.0 mm at the common hepatic duct. Normal is 6-7 mm or less in diameter, or 10 mm or less post-cholecystectomy. On the relatively recent CT angiogram of the chest, performed on 11/10/2024, the common duct was also noted to be dilated. Pancreas: Visualized portions of the pancreas are sonographically normal. Miscellaneous: No free abdominal fluid. IMPRESSION: Dilated common duct. This is abnormal for patient age. Comment: Recommend MRCP with and without contrast. Dictated by: Griffin Tanner M.D. on 11/23/2024 at 13:57 Approved by: Griffin Tanner M.D. on 11/23/2024 at 14:00
== END ==
LOC: US 13:03
PROVIDERS: PCP Family Medicine; Referring Provider Family Medicine; Visit Provider Family Medicine
DX: K83.8 Other specified diseases of biliary tract (principal); R10.11 Right upper quadrant pain
CPT/HCPCS: 76705

== ENCOUNTER → 2024-11-25 16:55 | Outpatient (CLI) | payer MEDICARE, OTHER, SELFPAY ==
--- NOTE | 2024-11-25 16:57 | DI.MRI.S_ITS ---
PROCEDURE: MR ABDOMEN WO/W CON INDICATIONS: Common bile duct dilation TECHNIQUE: Coronal HASTE, axial 2D FLASH in- and [id number]; axial breath-hold T2 FSE with fat saturation from the hepatic dome to the iliac crests. Oblique coronal thin- slice and radial thick slab HASTE through the biliary system. Dynamic axial VIBE during administration of contrast. Post-contrast coronal VIBE or 2D FLASH with fat saturation from the hepatic dome to the iliac crests. Optional diffusion weighted imaging and ADC may be performed. COMPARISON: [facility], US, US ABDOMEN LIMITED, 11/23/2024, 13:16. FINDINGS: Image quality: Diagnostic Lower chest: [id number] hiatal hernia. Normal heart size. Lung bases are not well evaluated on MRI, no gross abnormality is seen. Liver: Unremarkable Gallbladder and biliary system: Distended gallbladder. No discrete stones seen. CBD is dilated, measuring up to 1 cm proximally and 0.8 cm distally. No definite obstructing mass or calculus is seen. Pancreas: No focal solid lesion. Mildly ectatic pancreatic duct, measuring 0.3 cm. Spleen: Nonenlarged Adrenals: No discrete nodules Kidneys: No solid renal mass. No hydronephrosis. Scattered cysts are present. Vessels and lymph nodes: Main portal vein is patent. No abdominal aortic aneurysm. No enlarged lymph nodes by size criteria. Bowel and peritoneum: Moderate to large colonic fecal loading. No drainable abscess or ascites. No small bowel obstruction. Body wall: Unremarkable Bones: There are degenerative changes. IMPRESSION: CBD dilation again seen. Mildly ectatic pancreatic duct also noted, measuring 0.3-0.4 cm. There is no discrete obstructing mass or stone. Differential includes senescent changes, ampullary dysfunction, or an imaging occult lesion. If there are LFT abnormalities, consider further evaluation with ERCP. Other incidental and likely nonacute findings above. Dictated by: Edison Bridges M.D. on 11/26/2024 at 8:21 Approved by: Edison Bridges M.D. on 11/26/2024 at 8:30
== END ==
PROVIDERS: PCP Family Medicine; Referring Provider Family Medicine; Visit Provider Family Medicine
DX: K83.8 Other specified diseases of biliary tract (principal); K86.89 Other specified diseases of pancreas; K44.9 Diaphragmatic hernia without obstruction or gangrene; N28.1 Cyst of kidney, acquired
CPT/HCPCS: 74183; A9579